=== PATIENT | male | born 1940 | race Caucasian/White ===

== ENCOUNTER → 2016-10-19 | Outpatient (CLI) | payer BC ==
[~2016-10-19] MED LIST: ASPEC81 PO; CHOL100027 PO; LATA0.5S OPB; LECITHIN PO; LISI-792 PO; METH1TAB66 PO; MISCCAP80 PO; MULT-513 PO; OMEG10007 PO; TIMO0.5S2 OPB
--- NOTE | 2016-10-19 11:01 | DIAGNOSTIC IMAGING REPORT ---
MRI OF THE RIGHT SHOULDER CLINICAL HISTORY: Right shoulder pain. COMPARISON STUDY: Radiographs of the right shoulder dated 09/25/2015. TECHNIQUE: MRI of the right shoulder was performed utilizing various T1 and T2 weighted sequences in the axial, sagittal, coronal planes. IV contrast was not administered for this examination. The examination is degraded by susceptibility artifact from metallic structure. FINDINGS: Rotator cuff: There is full-thickness rupture of the supraspinatus and intraspinous tendons with musculotendinous retraction. The tendons are retracted by at least 4 cm. There is associated superior subluxation of the humeral head. There is tendinopathy with high-grade tearing of the subscapularis tendon. A few fibers likely remain intact. The teres minor tendon appears intact. There is subacromial and subdeltoid bursal fluid. Productive degenerative changes seen at the acromioclavicular joint. Biceps tendon: There is tendinopathy with high-grade partial thickness tearing of the long head of the biceps tendon. A few of the fibers remain intact. There is mild medial subluxation of the tendon at the level of the humeral head. The anchor appears intact. Labrum: The labrum is macerated with circumferential tearing. Shoulder joint: There is trace joint effusion. The articular cartilage over the glenoid appears maintained. Arthritic change and bony irregularity is identified in the greater tuberosity of the humeral head. There is no MRI evidence of fracture. Musculature and soft tissues: The supraspinatus and infraspinatus muscles are markedly atrophic. No intramuscular edema is identified. IMPRESSION: 1. There is full-thickness rupture with musculotendinous retraction involving the supraspinatus and infraspinatus tendons with associated superior subluxation of the humeral head. 2. There is marked muscular atrophy of supraspinatus and interspinous. 3. There is maceration with circumferential tearing of the labrum. 4. There is high-grade partial thickness tearing of the subscapularis tendon. A few fibers likely remain intact. 5. There is tendinopathy with high-grade partial-thickness tearing of the long head of the biceps tendon. There is mild medial subluxation of the tendon at the level of the humeral head. 6. Additional findings as above. Electronically signed by: Ryder Shaw M.D. 10/19/2016 11:00 AM Dictated Date/Time: 10/19/2016 10:54 AM
== END | disposition home or self-care (01) ==
LOC: C.MRI 09:39
PROVIDERS: ATTEND Physician Assistant
DX: S46.091D Other injury of muscle(s) and tendon(s) of the rotator cuff of right shoulder, subsequent encounter (principal); X58.XXXD Exposure to other specified factors, subsequent encounter; M62.511 Muscle wasting and atrophy, not elsewhere classified, right shoulder; S46.811A Strain of other muscles, fascia and tendons at shoulder and upper arm level, right arm, initial encounter; M75.91 Shoulder lesion, unspecified, right shoulder

== ENCOUNTER → 2016-11-29 | Outpatient (CLI) | payer BC | END | disposition home or self-care (01) | LOC: C.RDSM 09:30 | PROVIDERS: ATTEND Orthopaedic Surgery Sports Medicine | DX: M25.552 Pain in left hip (principal) ==

== ENCOUNTER → 2016-12-05 | Outpatient (CLI) | payer BC ==
[2016-12-05 09:35] LABS: BASO % 0.7 %; BASO ABS # 0.04 K/uL (0-0.2); COMPLETE YES; EOS % 2.8 %; HEMATOCRIT 42.4 % (42-52); IG% 0.2 %; LYMPH ABS # 1.66 K/uL (1.2-3.4); MEAN CELL VOLUME 94.9 fL (80-100); MEAN CORPUSCULAR HEMOGLOBIN 32.2 pg (25-34); MONO % 13.4 %; NEUT % 51.9 %; PLATELET COUNT 296 K/uL (130-400); RED BLOOD COUNT 4.47 M/uL (4.7-6.1); WHITE BLOOD COUNT 5.36 K/uL (4.8-10.8)
[2016-12-05 09:44] LABS: BLOOD UREA NITROGEN 19 mg/dl (7-18); BUN/CREATININE RATIO 19.5 (10-20); CALCIUM 8.7 mg/dl (8.5-10.1); CARBON DIOXIDE 31 mmol/L (21-32); CHLORIDE 106 mmol/L (98-107); CREATININE 0.96 mg/dl (0.60-1.40); GLUCOSE 98 mg/dl (70-99); SODIUM 140 mmol/L (136-145)
[2016-12-05 09:49] LABS: CHOLESTEROL 177 mg/dl (0-200); CHOLESTEROL/HDL RATIO 3.2; HDL CHOLESTEROL 56 mg/dl; LDL CHOLESTEROL CALCULATED 93 mg/dl; TRIGLYCERIDES 139 mg/dl (0-150); VERY LOW DENSITY LIPOPROT CALC 28 mg/dl
[2016-12-05 09:54] LABS: ESTIMATED AVERAGE GLUCOSE 120 mg/dl; HA1C FLAG Normal (Normal)
== END | disposition home or self-care (01) ==
LOC: C.LAB1850 07:46
PROVIDERS: ATTEND Internal Medicine
DX: I10 Essential (primary) hypertension (principal); R73.03 Prediabetes; E78.5 Hyperlipidemia, unspecified; R31.9 Hematuria, unspecified; D09.0 Carcinoma in situ of bladder; Z12.5 Encounter for screening for malignant neoplasm of prostate

== ENCOUNTER → 2016-12-14 | Outpatient (CLI) | payer BC ==
[~2016-12-14] MED LIST changes: +OPTIRAY 300 IV PRN
--- NOTE | 2016-12-14 14:21 | DIAGNOSTIC IMAGING REPORT ---
IVP W/OR W/O TOMOGRAMS CLINICAL HISTORY: BLADDER CANCER bladder carcinoma COMPARISON STUDY: None FINDINGS: Studies performed following the intravenous injection of 1 cc nonionic contrast. Tomographic sections demonstrate no evidence for differences. There is left renal sinus lipomatosis.. Ureters normal in course and caliber. Bladder fills appropriately with no significant filling defect. Post void shows no significant residual. IMPRESSION: Negative study. The above report was generated using voice recognition software. It may contain grammatical, syntax or spelling errors. Electronically signed by: Urbano Harmon M.D. 12/14/2016 2:20 PM Dictated Date/Time: 12/14/2016 2:18 PM
== END | disposition home or self-care (01) ==
LOC: C.RAD 12:45
PROVIDERS: ATTEND Urology
DX: D09.0 Carcinoma in situ of bladder (principal)

== ENCOUNTER 2019-02-18 07:54 | Inpatient (IN) ==
--- NOTE | 2019-01-21 19:57 | PAT Medication Instructions ---
Medication Instructions Date of Service January 21, 2019 Home Medications Medication Instructions Recorded pantoprazole [Protonix] 40 mg PO DAILY #30 tab 05/14/18 ipratropium bromide 42 mcg (0.06 2 sprays INTNAS BID #15 ml 12/24/18 %) nasal spray olopatadine 0.6 % nasal spray 2 sprays INTRANASAL DAILY #30.5 gm 12/24/18 Probiotic 1 cap PO QAM aspirin [Aspir-81] 81 mg PO QAM cholecalciferol (vitamin D3) [Vitamin D3] 2,000 unit PO QAM latanoprost 1 drp OPB HS lisinopril 2 tab PO QAM multivitamin 1 tab PO QAM omega 3-mtb-kui-fish oil [Fish Oil] 1 cap PO QAM psyllium husk [Fiber-Caps (psyllium husk)] 0.52 g PO QAM timolol 1 drp OPHTHALMIC (EYE) QAM pantoprazole [Protonix] 40 mg PO DAILY ipratropium bromide 42 mcg (0.06 %) nasal spray 2 sprays INTNAS BID olopatadine 0.6 % nasal spray 2 sprays INTRANASAL DAILY docusate sodium [Stool Softener] 100 mg PO QAM ASK your prescriber and surgeon aspirin [Aspir-81] 81 mg PO QAM STOP taking 2 weeks before surgery (or as soon as possible if surgery is within 2 weeks) omega 9-lzq-acs-fish oil [Fish Oil] 1 cap PO QAM DO NOT take the morning of surgery Probiotic 1 cap PO QAM cholecalciferol (vitamin D3) [Vitamin D3] 2,000 unit PO QAM lisinopril 2 tab PO QAM multivitamin 1 tab PO QAM psyllium husk [Fiber-Caps (psyllium husk)] 0.52 g PO QAM docusate sodium [Stool Softener] 100 mg PO QAM Take morning of surgery With a small sip of water, OTHERWISE NOTHING TO EAT OR DRINK AFTER MIDNIGHT: timolol 1 drp OPHTHALMIC (EYE) QAM pantoprazole [Protonix] 40 mg PO DAILY ipratropium bromide 42 mcg (0.06 %) nasal spray 2 sprays INTNAS BID olopatadine 0.6 % nasal spray 2 sprays INTRANASAL DAILY Take evening before surgery latanoprost 1 drp OPB HS ipratropium bromide 42 mcg (0.06 %) nasal spray 2 sprays INTNAS BID Other Notes If you have any questions please call us at [phone] or [phone] or [phone] or [phone]
--- NOTE | 2019-01-22 10:33 | Anesthesiology Consultation ---
Date of Service January 22, 2019 Assessment & Plan (1) Encounter for pre-operative examination: - Possible difficult intubation: due to decreased cervical extension (per patient, hx "pinched nerve" in cervical region) Chart Review Chart Review: Pending: Refer to Additional Notes / Consult section (pending preop testing (labs, EKG, CXR)) and Patient seen in Pre Admission Testing Teaching & Discussion Pre-Anesthesia Teaching/Discussion Notes: Instructed NPO after midnight before surgery,except medications with 15 cc of water. Medication instructions provided according to the PAT guidelines. History Surgery Operation Date: 02/18/19 07:00 Proposed Procedures p Right Reversed Total Shoulder Arthroplasty - Miguel Angel Lubin MD Height/Weight Height: 5 ft 6 in Weight: 74.9 kg Allergies Allergy/AdvReac Type Severity Reaction Status Date / Time No Known Drug Allergies Allergy Unknown . Verified 01/10/19 08:01 Medications Home Medications Medication Instructions Recorded Confirmed Last Taken Probiotic 1 cap PO QAM 03/12/18 01/10/19 05/13/18 aspirin [Aspir-81] 81 mg PO QAM 03/12/18 01/10/19 05/13/18 cholecalciferol (vitamin D3) 2,000 unit PO QAM 03/12/18 01/10/19 05/13/18 [Vitamin D3] latanoprost 1 drp OPB HS 03/12/18 01/10/19 05/14/18 lisinopril 2 tab PO QAM 03/12/18 01/10/19 05/14/18 06:00 multivitamin 1 tab PO QAM 03/12/18 01/10/19 05/13/18 omega 5-skq-gde-fish oil [Fish Oil] 1 cap PO QAM 03/12/18 01/10/19 05/13/18 psyllium husk [Fiber-Caps 0.52 g PO QAM 03/12/18 01/10/19 05/13/18 (psyllium husk)] timolol 1 drp OPHTHALMIC (EYE) QAM 03/12/18 01/10/19 05/07/18 05:30 pantoprazole [Protonix] 40 mg PO DAILY #30 tab 05/14/18 01/10/19 Unknown ipratropium bromide 42 mcg (0.06 2 sprays INTNAS BID #15 ml 12/24/18 01/10/19 Unknown %) nasal spray olopatadine 0.6 % nasal spray 2 sprays INTRANASAL DAILY #30.5 gm 12/24/18 01/10/19 Unknown docusate sodium [Stool Softener] 100 mg PO QAM 01/10/19 01/10/19 Unknown Past Medical History Medical History Pre-diabetes GERD (gastroesophageal reflux disease) occasional Glaucoma Hearing deficit History of bladder cancer Hypertension Osteoarthritis Sleep apnea CPAP Exercise / Class Metabolic Activity II 4-5 Yardwork/Stairs/Walk up hill Past Family History Family History Grandmother Dementia Osteoarthritis Rheumatoid arthritis Father Heart disease Grandfather (Maternal) Lung disease Mother Osteoporosis Past Surgical History Surgical History History of colonoscopy History of hemorrhoidectomy History of tonsillectomy History of tooth extraction Hx of cataract surgery LEFT/RT Hx of vasectomy Past Anesthesia History No Hx of Anesthesia Complications and No Family Hx of Anesthesia Complications History of PONV No Hx of PONV and No Hx of Motion Sickness Social History Smoking Status: Never smoker Do You Dip or Chew Tobacco: No Hx Alcohol Use: Yes Alcohol type: wine alcohol intake frequency: other Alcohol Intake Frequency Comment: 3 DRINKS A WEEK Hx Substance Use: No substance use type: does not use Review of Systems Occasional reflux. Patient denies chest pain, shortness of breath, dyspnea on exertion, cough, wheezing, palpitations. Physical Exam Vital Signs VITALS BP 109/63 P 93 TEMP 97.4 SP02 94%RA RESP 16 PHYSICAL Decreased cervical extension 2/2 "pitched vertebra" Full TMJ range of motion. TMD 2.5 finger breaths Mallampati Score 3 Dentition: several missing sides/molars Lungs: clear throughout to auscultation Cardiac: regular rate and rhythm, no murmurs noted Spine: normal Carotid arteries: negative bruit Extremities: no edema
--- NOTE | 2019-01-22 11:26 | XRay Report ---
XR chest Pre-admission PA/Lat CLINICAL HISTORY: 79 years-old Male presenting with preoperative assessment. TECHNIQUE: 05/12/2010 and 12/19/2014. COMPARISON: None. FINDINGS: Elevation of the bilateral hemidiaphragms as on prior exam. Cardiac silhouette borderline enlarged. M inimal linear opacity at the left lung base unchanged. No new focal opacity. No pleural effusion or p neumothorax. Degenerative changes of the thoracic spine. Upper abdomen normal. IMPRESSION: 1. No acute cardiopulmonary disease. Electronically signed by: Omero Gallegos M.D. 01/22/2019 11:25 AM
[2019-01-22 12:00] LABS: Basophils # (auto) 0.04 K/uL (0-0.2); Basophils % (auto) 0.9 %; Eosinophils # (auto) 0.07 K/uL (0-0.5); Eosinophils % (auto) 1.6 %; Hematocrit (blood only) 40.7 % (42-52); Hemoglobin 14.1 g/dL (14.0-18.0); Lymphocytes # (auto) 1.73 K/uL (1.2-3.4); Lymphocytes % (auto) 39.7 %; Mean Corpuscular Hemoglobin 33.1 pg (25-34); Mean Corpuscular Hgb Conc 34.6 g/dL (32-36); Mean Corpuscular Volume 95.5 fL (80-100); Mean Platelet Volume 8.9 fL (7.4-10.4); Monocytes # (auto) 0.57 K/uL (0.11-0.59); Monocytes % (auto) 13.1 %; Neutrophils # (auto) 1.95 K/uL (1.4-6.5); Neutrophils % (auto) 44.7 %; Platelet Count 256 K/uL (130-400); RDW Coefficient of Variation 12.9 % (11.5-14.5); RDW Standard Deviation 44.6 fL (36.4-46.3); Red Blood Count 4.26 M/uL (4.7-6.1); White Blood Count 4.36 K/uL (4.8-10.8)
[2019-01-22 12:04] LABS: Appearance Urine Clear (Clear); Bilirubin Urine Negative (Negative); Blood Urine Negative (Negative); Color Urine Yellow; Glucose Urine UA Negative (Negative); Ketones Urine Negative (Negative); Leukocyte Esterase Urine Negative (Negative); Nitrite Urine Negative (Negative); Protein Urine Negative (Negative); Specific Gravity Urine 1.018 (1.000-1.030); Urobilinogen Urine Negative (Negative); pH Urine 5.5 (4.5-7.5)
[2019-01-22 12:06] LABS: Estimated Average Glucose 117 mg/dl; Hemoglobin A1C 5.7 % (4.5-5.6)
[2019-01-22 12:09] LABS: Albumin Level 3.7 gm/dl (3.4-5.0); BUN Creatinine Ratio 20.4 (10-20); Calcium 8.9 mg/dl (8.5-10.1); Creatinine Clr Calc Pharmacy 47.4 ml/min; Est GFR (African American) 70.5; Est GFR (Non-African American) 60.8; Potassium 4.2 mmol/L (3.5-5.1)
[2019-01-22 12:15] LABS: Partial Thromboplastin Time 26.5 Seconds (21.0-31.0)
--- NOTE | 2019-02-17 18:04 | History and Physical Report ---
DATE OF ADMISSION: 02/18/2019 CHIEF COMPLAINT: Chronic right shoulder pain and weakness. HISTORY OF PRESENT ILLNESS: This is a 79-year-old male patient of Dr. Lubin'dimitri complaining of chronic right shoulder pain and weakness, longstanding, now progressively getting worse. The patient has failed conservative treatment. He has been diagnosed with rotator cuff arthropathy and wishes to proceed with a right reversed total shoulder arthroplasty. PAST MEDICAL HISTORY: Hypertension, sleep apnea with the use of CPAP, neck problems, history of bladder cancer. SOCIAL HISTORY: Nonsmoker, occasional drinker. PAST SURGICAL HISTORY: Negative. FAMILY HISTORY: Noncontributory. REVIEW OF SYSTEMS: Chronic right shoulder pain and weakness. Otherwise, denies any shortness of breath, chest pain, nausea, vomiting or any other joint complaints. MEDICATIONS: 1. Betimol 0.5% eyedrops twice daily to affected eye. 2. Xalatan 0.005% eyedrops 1 drop to affected eye daily. 3. Lisinopril 40 mg daily. 4. Aspirin 81 mg daily. 5. Vitamin D3 2000 units daily. 6. Fish oil daily. 7. Probiotic 20 billion cell capsule daily. 8. Fiber 625 mg tablet daily. 9. Calcium daily. 10. Ipratropium bromide 42 mcg 2 sprays in each nostril 3 times daily. ALLERGIES: No known drug allergies. PHYSICAL EXAMINATION: GENERAL: Well-developed, well-nourished 79-year-old male, in no acute distress. He is alert and oriented x3 and pleasant. HEENT: Normocephalic, atraumatic. Extraocular motions are intact. Pupils are equal and reactive to light. HEART: Regular rate and rhythm. No murmurs. LUNGS: Clear. ABDOMEN: Soft, nontender, bowel sounds present. EXTREMITIES: Right shoulder, active range of motion of 0-30 degrees, passively full with pain and crepitation. He has 3+ to 4/5 strength globally. NEUROLOGIC: Neurovascularly, he is intact in his right upper extremity. DIAGNOSES: Right shoulder rotator cuff arthropathy, hypertension, sleep apnea with use of CPAP, neck problems and a history of bladder cancer. PLAN: The patient was advised of his diagnosis. Indications, risks, benefits, postop course have all been reviewed. The patient wished to proceed with a right reversed total shoulder arthroplasty. Necessary consent forms, preoperative testing and clearances will be obtained.
[~2019-02-18 07:54] MED LIST changes: +ACETAMINOPHEN 500 MG TAB PO SCH; -ASPEC81 PO; +CEFAZOLIN 1000MG 1,000 MG/7.5 ML SYR IV SCH; -CHOL100027 PO; +CeleBREX 200 MG CAP PO SCH; +FAMOTIDINE 20 MG TAB PO SCH; +GABAPENTIN 300 MG CAP PO SCH; -LATA0.5S OPB; -LECITHIN PO; -LISI-792 PO; +LR 15ML/HR IV SCH; -METH1TAB66 PO; +METOCLOPRAMIDE HCL 10 MG TABLET PO SCH; -MISCCAP80 PO; -MULT-513 PO; -OMEG10007 PO; -OPTIRAY 300 IV PRN; +ROPIVACAINE 0.5% 5 MG/ML 30 ML VIAL ONE; -TIMO0.5S2 OPB; +TRANEXAMIC ACID 1,000 MG **IV Intra-op IV SCH; +TRANEXAMIC ACID 1,000 MG **IV Pre-op IV SCH; +dexAMETHasone 4 MG TAB PO SCH
--- NOTE | 2019-02-18 08:28 | History & Physical Bridge Note ---
Date of Service February 18, 2019 History & Physical Bridge Note I have examined the patient, reviewed the History & Physical and in the interval since the performance of the History & Physical I have noted the following changes of clinical significance: no changes noted
[2019-02-18] MEDS ORDERED: ONDANSETRON INJ 2 MG/ML 2 ML VIAL IV PRN ×2 (08:58→15:24)
[2019-02-18] MEDS ORDERED: fentaNYL citrate 100 MCG/2 ML VIAL IV PRN (08:58)
[2019-02-18] MEDS ORDERED: ATROPINE SULFATE 0.1 MG/ML 10ML SYR IV PRN (08:58)
[2019-02-18] MEDS ORDERED: ePHEDrine sulfate 50 MG/ML AMP IV PRN (08:58)
[2019-02-18] MEDS ORDERED: HYDROmorphone INJ 1 MG/ML SYRINGE IV PRN (08:58)
[2019-02-18] MEDS ORDERED: ONDANSETRON INJ 2 MG/ML 2 ML VIAL ONE (09:03)
[2019-02-18] MEDS ORDERED: DEXAMETHASONE SOD INJ 4 MG/ML VIAL ONE (09:03)
[2019-02-18] MEDS ORDERED: PROPOFOL IV EMULSION 10 MG/ML 20 ML VIAL IV ONE (09:03)
[2019-02-18] MEDS ORDERED: fentaNYL citrate 100 MCG/2 ML VIAL ONE (09:03)
[2019-02-18] MEDS ORDERED: GLYCOPYRROLATE 0.2 MG/ML VIAL ONE (09:03)
[2019-02-18] MEDS ORDERED: LIDOCAINE HCL 2% 2 ML VIAL/AMP(20MG/ML) INFIL ONE (09:03)
[2019-02-18] MEDS ORDERED: ePHEDrine sulfate 50 MG/ML AMP ONE (09:03)
[2019-02-18] MEDS ORDERED: PHENYLEPHRINE HCL 10 MG/ML VIAL ONE (09:03)
[2019-02-18] MEDS ORDERED: SUCCINYLCHOLINE CHLORIDE 20 MG/ML 10 ML VIAL ONE (09:03)
[2019-02-18] MEDS ORDERED: MIDAZOLAM HCL 1 MG/ML 2ML VIAL ONE (09:03)
[2019-02-18] MEDS ORDERED: NEOSTIGMINE METHYLSULFATE 5 MG/5 ML SYR ONE (09:03)
[2019-02-18] MEDS ORDERED: BACITRACIN INJ 50,000 UNIT VIAL ONE (09:25)
[2019-02-18] MEDS ORDERED: ACETAMINOPHEN 1000 MG/100 ML IV IV ONE (09:50)
[2019-02-18] MEDS ORDERED: ROPIVACAINE 0.5% HCL/PF 150 MG, BUPIVACAINE 0.5% MPF 30 ML, EPINEPHrine 30MG/30ML (OR U... INSTIL SCH (10:00)
[2019-02-18] MEDS ORDERED: HYDROmorphone INJ 2 MG/ML SYR/VIAL ONE (11:05)
--- NOTE | 2019-02-18 12:17 | Post Operative Brief Note ---
Immediate Post Op Note v1 Date of Surgery February 18, 2019 Pre & Post Diagnosis Operation Date: 02/18/19 10:20 Pre-Op Diagnosis: Rotator Cuff tear arthropathy of Right Shoulder Post-Op Diagnosis: Rotator Cuff tear arthropathy of Right Shoulder, Biceps Tendinopathy with subluxation I identified the patient and participated in the time-out.: Yes Procedure Operation Date: 02/18/19 10:20 Actual Procedures p Right Reversed Total Shoulder Arthroplasty, Biceps Tenodesis(Right) - Miguel Angel Lubin MD Surgeon Miguel Angel Lubin MD Hunting [employer] Urbano ROMO Estimated Blood Loss 75 Findings Consistent with Post-Op Diagnosis Specimens Humeral head Drains Hemovac Drain Anesthesia Type General Complications none Disposition Accompanied Patient To Recovery: No Disposition: Recovery Room Overlapping Procedure I was present for: the critical portions of procedure.
--- NOTE | 2019-02-18 13:08 | XRay Report ---
XR shoulder RT min 2V routine CLINICAL HISTORY: Post shoulder surgery COMPARISON: None. DISCUSSION: Anatomic alignment posttotal right shoulder arthroplasty. Could contact between prostheti c and underlying bone. Expected postoperative soft tissue change. IMPRESSION: Anatomic alignment posttotal right shoulder arthroplasty. The above report was generated using voice recognition software. It may contain grammatical, syntax or spelling errors. Electronically signed by: Urbano Harmon M.D. 02/18/2019 1:06 PM
[2019-02-18] MEDS ORDERED: bisacodyL 10 MG SUPP PR PRN (15:24)
[2019-02-18] MEDS ORDERED: HYDROmorphone INJ 0.5 MG/0.5 ML SYR IV PRN (15:24)
[2019-02-18] MEDS ORDERED: MAGNESIUM HYDROXIDE SUSP 30 ML UDC PO PRN (15:24)
[2019-02-18] MEDS ORDERED: NALOXONE HCL 0.4 MG/1 ML VIAL/CARP IV PRN (15:24)
[2019-02-18] MEDS ORDERED: OXYCODONE HCL IR 5 MG TAB (IMMEDIATE RELEASE) PO PRN (15:24)
--- NOTE | 2019-02-18 15:41 | Anesthesiology Progress Note ---
Date of Service February 18, 2019 Anesthesia Post Procedure Vital Signs Vital Signs: Temp Pulse Pulse Resp BP Pulse Ox 02/18/19 15:00 36.9 C 65 16 107/61 98 02/18/19 14:55 68 16 103/57 L 99 02/18/19 14:40 71 17 107/56 L 100 02/18/19 14:25 66 15 104/60 98 02/18/19 14:10 62 16 103/62 98 02/18/19 14:00 61 14 104/62 97 02/18/19 13:50 36.4 C L 61 12 102/57 L 100 02/18/19 13:40 62 13 113/64 98 02/18/19 13:30 79 20 98/59 L 97 02/18/19 13:20 65 13 104/62 97 02/18/19 13:10 52 L 16 101/63 99 02/18/19 13:00 63 14 99/63 L 99 02/18/19 12:50 58 L 16 90/61 L 99 02/18/19 12:40 58 L 16 83/56 L 99 02/18/19 12:30 57 L 14 93/51 L 97 02/18/19 12:24 36.1 C L 60 18 92/57 L 97 02/18/19 08:44 36.9 C 87 20 136/78 96 Pain Intensity Right Shoulder: Pain Intensity: 2 Transfer of Care Handoff Completed per policy Notes Mental Status: alert / awake / arousable and participated in evaluation Patient Amnestic to Procedure: Yes Nausea / Vomiting: adequately controlled Pain: adequately controlled Airway Patency, RR, SpO2: stable & adequate BP & HR: stable & adequate Hydration State: stable & adequate Anesthetic Complications: no major complications apparent and Pt Satisfied with anesthetic care
[2019-02-18] MEDS ORDERED: PHARMACY GLYCEMIC MGMT CONSULT PRN (16:08)
[2019-02-18] MEDS: SODIUM CHLORIDE 0.9% 1000ML 1,000 ML IV SCH (16:15)
--- NOTE | 2019-02-18 16:49 | Operative Report ---
Post Operative Report Pre & Post Diagnosis Operation Date: 02/18/19 10:20 Pre-Op Diagnosis: Rotator Cuff tear arthropathy of Right Shoulder Post-Op Diagnosis: Rotator Cuff tear arthropathy of Right Shoulder, Biceps Tendinopathy I identified the patient and participated in the time-out.: Yes Procedure Operation Date: 02/18/19 10:20 Actual Procedures p Right Reversed Total Shoulder Arthroplasty, Biceps Tenodesis(Right) - Miguel Angel Lubin MD Surgeon Miguel Angel Lubin MD Manager [employer] Urbano ROMO Estimated Blood Loss 75 Findings Consistent with Post-Op Diagnosis Specimens Humeral head cut Drains 2 Hemovac Anesthesia Type General Complications none Disposition Accompanied Patient To Recovery: No Disposition: Recovery Room Indications 79-year-old male with chronic dysfunction and pain right shoulder. Radiographs demonstrate proximal migration humerus and rotator cuff arthropathy consistent with chronic rotator cuff tear. Patient has a pseudo-paralytic shoulder with limited elevation actively to 40 degrees forward elevation by 30 degrees with reasonable good passive range of motion. Patient has significant decreased s trength consistent with complete tear rotator cuff. Description of Procedure The patient was taken to the operating room and anesthetized under regional block and general anesthetic. The patient was positioned on the operating table in a 30 beachchair position with a towel roll under the medial border of the right scapula. The arm was draped free to be able to manipulate the shoulder as needed. The right upper extremity was prepped and draped in usual sterile fashion. Exam demonstrated chronic atrophy of the shoulder. Good passive range of motion to 160 degrees forward elevation. An anterior deltopectoral approach was performed. A longitudinal incision was made in the deltopectoral interval. The skin was incised sharply. Subcutaneous flaps were elevated off the fascia. The cephalic vein was dissected out and retracted lateral with the deltoid. The clavipectoral fascia was divided at the lateral margin of the conjoined tendon and extended up to the CA ligament. The following findings were noted ;the subscapularis tendon was intact, small section of supraspinatus tendon was still intact adjacent to the biceps tendon. 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 There is moderate osteoarthritis glenohumeral joint not [id number] the posterior supraspinatus and two thirds of the infraspinatus tendon were torn with intact teres minor. The upper centimeter of the pectoralis was released for inferior exposure. the biceps tendon was tenodesed to the pectoralis tendon with #2 FiberWire. The proximal biceps was resected. The small strand of intact supraspinatus was released. The subscapularis tendon was taken down off the lesser tuberosity usi ng a subperiosteal dissection. A #1 Vicryl traction suture was placed into the free end of the subscapularis tendon and capsule. The subscapular muscle fibers were split longitudinally at the level of the circumflex vessels. The circumflex vessels were identified and tied off with silk ties and divided laterally. A Kitner elevator was used to free up the inferior fibers of the subscapularis off of the capsule. The axillary nerve was identified with a tug test and protected with a blunt Kenji retractor between the nerve and the capsule. The subscapularis tendon was then taken down off of the lesser tuberosity subperiosteally and subperiosteal dissection was performed along the neck of the humerus as the arm is gradually actually rotated exposing the humeral head. Retractors were readjusted and the inferior osteophytes were all resected using an artist chisel. A Anderson elevator was used to assist in releasing the capsule of the neck of the humerus. The capsule was divided with Fall scissors down to the glenoid released off the anterior glenoid and the rotator interval was released to meet the capsular release and a 360 release of the subscapularis was accomplished. A Fukuda retractor was placed into the joint retracting the humeral head posterior. Glenoid findings demonstrated mild to moderate DJD still intact labrum. The labrum and biceps tendon was resected. an anterior-inferior and posterior inferior capsular release were performed with electrocautery and a Anderson elevator on bone with the axillary nerve protected inferiorly by the retractor. Attention was then taken to the humeral preparation. The cutting guide was placed into the humeral head. It was positioned at 20 of retroversion. Oscillating saw was used to resect the humeral head giving the cut above the level of the posterior rotator cuff insertion site. The humerus was then prepared for the stem. I used the ascend flex stem from [employer]. The sizing broaches were used followed by trial bro aches up to a size 6B long which had the appropriate fit and fill. The appropriate sized cut protector was placed. The humerus was then retracted posterior to the glenoid. The glenoid was sized for a 25 baseplate. The guide for the baseplate was positioned in a 10 inferior tilt and the central drill hole was made. The reamer for the 25 baseplate was used. The central drill was widened for the peg. The 25 hydroxyapatite-coated Tornier aequalis baseplate was impacted into position. The base plate was transfixed with superior and inferior locking screws and anterior and posterior compression screws with stable fixation. The fan reamer was used for the 36 millimeter glenoid sphere. After irrigation the 36+2 eccentric glenoid sphere was impacted onto the baseplate with eccentric offset inferior and the screw was tightened. Attention was taken back to the humerus. The cut protector was removed and the +0 high offset humeral tray trial was assembled to the trial stem rotated appropriately to get bony coverage and then screwed in position. A trial reduction was performed. A +6 trial insert demonstrated good stability and no shuck. The trials were removed. 3 drill holes are made into the harder bone in the bicipital groove area and 3 #5 FiberWire sutures were placed transosseously. The canal was irrigated with antibiotic solution with bacitracin. The final component was assembled. The final component was 6B long stem assembled to +0 high offset tray assembled to 6 mm polyethylene. This was then impacted into the humerus with a tight press-fit. It was reduced to the glenoid sphere. Stability was verified. Subscapularis was repaired with the #5 FiberWire sutures using Den-Mukesh suture technique. Lateral row soft tissue repair was performed with #2 FiberWire [id number] sutures. The pectoralis was repaired with #2 FiberWire [id number] sutures reinforcing the biceps tendon tenodesis. The arm was taken through a range of motion which demonstrated 150 degrees forward elevation 90 degrees abduction external rotation to 60 degrees. The implant was stable through the range of motion tested. The wound was copiously irrigated. 2 Hemovac drains were placed. The deltopectoral interval was closed with [id number] #1 Vicryl sutures. The subcutaneous tissues were closed with 2-0 Vicryl sutures. The skin was closed with freddy. Sterile dressings were applied and a shoulder immobilizer. Urbano Barakat my physician fleet assistant assisted in the procedure to the entire procedure including patient positioning arm positioning prepping and draping soft tissue retraction instrument management suture management and performed the subcutaneous and skin closure and will participate in the postoperative care of the patient. I attest to the content of the Intraoperative Record and any orders documented therein. Any exceptions are noted below.
[2019-02-18] MEDS: ACETAMINOPHEN 500 MG TAB PO SCH ×2 (17:01→21:49)
[2019-02-18] MEDS: CEFAZOLIN 1000MG 1,000 MG/7.5 ML SYR IV SCH (17:01)
[2019-02-18] MEDS ORDERED: GLUCAGON FOR INJ 1 MG VIAL IM PRN (17:15)
[2019-02-18] MEDS ORDERED: GLUCOSE 10 TABS/TUBE PO PRN (17:15)
[2019-02-18] MEDS ORDERED: CARBOHYDRATES FOR HYPOGLYCEMIA PO PRN (17:15)
[2019-02-18] MEDS ORDERED: DEXTROSE 50% 50 ML SYRINGE IV PRN (17:15)
[2019-02-18] MEDS ORDERED: GLUCOSE 40% GEL 15 GM TUBE PO PRN (17:15)
[2019-02-18] MEDS ORDERED: SYSTANE ULTRA OP PRN (17:21)
[2019-02-18] MEDS ORDERED: LANTUS PER UNIT CHARGE SQ ONE (17:30)
[2019-02-18] MEDS: INSULIN ASPART 100 UNITS/ML 3 ML PEN SC SCH ×2 (18:30→20:39)
--- NOTE | 2019-02-18 19:24 | Hospitalist Consultation ---
Date of Consultation February 18, 2019 Assessment & Plan (1) Right shoulder pain: Post op on 02/[address] Lubin As per ortho (2) Sleep apnea: Has home CPAP to use (3) Pre-diabetes: No current medications SSI PRN (4) Essential hypertension: continue home meds (5) Cancer: Hx of bladder cancer in 2012, no current tx (6) GERD without esophagitis: Hx of dx but asx and does not take medication for this (7) DVT prophylaxis: As per ortho History of Present Illness Attending Physician: Miguel Angel Lubin MD History of Present Illness 79 y/o M who was admitted on 02/18 s/p R shoulder with Dr. Lubin. Pt is doing well post-op. Minimal pain that is about what he expected. Having some swallowing difficulties s/p intubation for the surgery, but did fine with broth. Pt denies fever, SOB, chest pain, abd pain, n/v/c/d, LE swelling or pain. Allergies Allergy/AdvReac Type Severity Reaction Status Date / Time No Known Drug Allergies Allergy Unknown . Verified 02/18/19 08:24 Home Medications Home Medications Medication Instructions Recorded Confirmed Type Probiotic 1 cap PO QAM 03/12/18 02/18/19 History aspirin [Aspir-81] 81 mg PO QAM 03/12/18 02/18/19 History cholecalciferol (vitamin D3) 2,000 unit PO QAM 03/12/18 02/18/19 History [Vitamin D3] latanoprost 1 drp OPB HS 03/12/18 02/18/19 History multivitamin 1 tab PO QAM 03/12/18 02/18/19 History omega 1-aaj-mdb-fish oil [Fish Oil] 1 cap PO QAM 03/12/18 02/18/19 History psyllium husk [Fiber-Caps 0.52 g PO QAM 03/12/18 02/18/19 History (psyllium husk)] ipratropium bromide 42 mcg (0.06 2 sprays INTNAS BID #15 ml 12/24/18 02/18/19 Rx %) nasal spray olopatadine 0.6 % nasal spray 2 sprays INTRANASAL DAILY #30.5 gm 12/24/18 02/18/19 Rx docusate sodium [Stool Softener] 100 mg PO QAM 01/10/19 02/18/19 History timolol 0.25 % eye drops 1 drp OPHTHALMIC (EYE) Q12H ml 01/22/19 02/18/19 History lisinopril 60 mg PO QAM 02/18/19 02/18/19 History Patient History Medical History Pre-diabetes History of bladder cancer GERD (gastroesophageal reflux disease) occasional Glaucoma Hearing deficit Hypertension Osteoarthritis Sleep apnea CPAP Surgical History History of colonoscopy History of hemorrhoidectomy History of tonsillectomy History of tooth extraction Hx of cataract surgery LEFT/RT Hx of vasectomy Family History Grandmother Dementia Osteoarthritis Rheumatoid arthritis Father Heart disease Grandfather (Maternal) Lung disease Mother Osteoporosis Social History Preferred Language: [place]ib[place]ian Communication Ability: Effective Communication Ability Comment: HARD OF HEARING / AID[employer] Level Five Required: No Beliefs That Will Affect Care: None Current Living Situation: Spouse Other Information That Helps Us Care for You: No Feels Safe at Home: Yes Smoking Status: Never smoker Do You Dip or Chew Tobacco: No ; Second Hand Exposure: No ; Hx Alcohol Use: Yes Alcohol type: beer, wine and hard liquor Alcohol Intake Frequency Comment: 2x a week after golf Hx Substance Use: No Review of Systems Review of Systems: Pertinent positives and negatives reviewed in HPI--all others negative Physical Exam Constitutional: WD/WN, vitals as above Eyes: normal visual barney by confrontation and + anicteric sclerae Neck: normal visual inspection and trachea midline Respiratory: normal respiratory effort, lungs clear to auscultation Cardiovascular: Rate/Rhythm: regular rate and regular rhythm Gastrointestinal (Abdomen): Inspection/Auscultation: abdomen not distended Percussion/Palpation: abdomen soft; abdomen nontender Musculoskeletal: Head/Neck/Chest: normocephalic and head atraumatic negative for edema, peripheral pulses intact Skin: no rashes, warm and dry Neurologic: awake; not confused Speech / Cognition: normal speech Psychiatric: A+Ox3, euthymic affect Results & Data Vital Signs (Past 12 Hours) Vital Signs Temp Pulse Pulse Pulse Resp BP Pulse Ox 02/18/19 18:25 76 02/18/19 17:54 36.6 C 98 H 16 122/68 97 02/18/19 16:54 36.3 C L 75 16 99/68 L 97 02/18/19 15:54 36.2 C L 86 16 120/74 96 02/18/19 15:24 36.5 C 71 16 113/61 97 02/18/19 15:00 36.9 C 65 16 107/61 98 02/18/19 14:55 68 16 103/57 L 99 02/18/19 14:40 71 17 107/56 L 100 02/18/19 14:25 66 15 104/60 98 02/18/19 14:10 62 16 103/62 98 02/18/19 14:00 61 14 104/62 97 02/18/19 13:50 36.4 C L 61 12 102/57 L 100 02/18/19 13:40 62 13 113/64 98 02/18/19 13:30 79 20 98/59 L 97 02/18/19 13:20 65 13 104/62 97 02/18/19 13:10 52 L 16 101/63 99 02/18/19 13:00 63 14 99/63 L 99 02/18/19 12:50 58 L 16 90/61 L 99 02/18/19 12:40 58 L 16 83/56 L 99 02/18/19 12:30 57 L 14 93/51 L 97 02/18/19 12:24 36.1 C L 60 18 92/57 L 97 02/18/19 08:44 36.9 C 87 20 136/78 96 Diagnostic Findings CXR: neg for acute ECG Findings: + LBBB PG Care Time/CCT Total # of Minutes Spent Total Time Spent with Patient: Total time spent is greater than 50% in coordination of care (as documented) at patient's floor/unit and/or counseling patient:
[2019-02-18] MEDS: IPRATROPIUM BROMIDE 0.06% SCH (20:36)
[2019-02-18] MEDS: TIMOLOL 0.5% OP SCH (20:38)
[2019-02-18] MEDS ORDERED: LATANOPROST 0.005% OP SOLN 2.5 ML BTL OPB SCH (21:00)
[2019-02-18] MEDS ORDERED: SENNA 8.6 MG TAB PO SCH (21:00)
[2019-02-18] MEDS ORDERED: LATANOPROST 0.005% OP SCH (21:00)
[2019-02-18] MEDS ORDERED: TIMOLOL MALEATE 0.25% OP SOLN 5 ML BTL OPB SCH (21:00)
[2019-02-18] MEDS: DOCUSATE SODIUM 100 MG CAP PO SCH (21:50)
[2019-02-19] MEDS: CEFAZOLIN 1000MG 1,000 MG/7.5 ML SYR IV SCH (00:34)
[2019-02-19] MEDS: SODIUM CHLORIDE 0.9% 1000ML 1,000 ML IV SCH (01:47)
[2019-02-19] MEDS: ACETAMINOPHEN 500 MG TAB PO SCH ×2 (05:47→13:21)
[2019-02-19 06:43] LABS: Hematocrit (blood only) 29.1 % (42-52); Hemoglobin 10.2 g/dL (14.0-18.0); Immature Granulocytes # (auto) 0.01 K/uL (0.00-0.02); Immature Granulocytes % (auto) 0.1 %; Lymphocytes # (auto) 1.26 K/uL (1.2-3.4); Lymphocytes % (auto) 12.5 %; Mean Corpuscular Hgb Conc 35.1 g/dL (32-36); Mean Corpuscular Volume 94.2 fL (80-100); Mean Platelet Volume 8.3 fL (7.4-10.4); Monocytes # (auto) 1.19 K/uL (0.11-0.59); Monocytes % (auto) 11.8 %; Neutrophils % (auto) 75.6 %; Platelet Count 191 K/uL (130-400); RDW Coefficient of Variation 12.5 % (11.5-14.5); RDW Standard Deviation 42.6 fL (36.4-46.3); Red Blood Count 3.09 M/uL (4.7-6.1); White Blood Count 10.06 K/uL (4.8-10.8)
[2019-02-19 07:16] LABS: BUN Creatinine Ratio 18.1 (10-20); Calcium 7.5 mg/dl (8.5-10.1); Creatinine Clr Calc Pharmacy 64.6 ml/min; Est GFR (African American) 92.6; Est GFR (Non-African American) 79.9; Potassium 4.1 mmol/L (3.5-5.1)
--- NOTE | 2019-02-19 08:00 | Anesthesiology Progress Note ---
Date of Service February 19, 2019 Anesthesia Post Procedure Vital Signs Vital Signs: Temp Pulse Pulse Pulse Resp BP BP 02/19/19 07:33 36.7 C 80 20 100/56 L 02/19/19 03:17 36.6 C 94 H 20 118/71 02/19/19 00:43 96 H 02/19/19 00:00 36.3 C L 102 H 20 110/57 L 02/18/19 19:21 36.5 C 93 H 18 115/61 02/18/19 18:25 76 02/18/19 17:54 36.6 C 98 H 16 122/68 02/18/19 16:54 36.3 C L 75 16 99/68 L 02/18/19 15:54 36.2 C L 86 16 120/74 02/18/19 15:24 36.5 C 71 16 113/61 02/18/19 15:00 36.9 C 65 16 107/61 02/18/19 14:55 68 16 103/57 L 02/18/19 14:40 71 17 107/56 L 02/18/19 14:25 66 15 104/60 02/18/19 14:10 62 16 103/62 02/18/19 14:00 61 14 104/62 02/18/19 13:50 36.4 C L 61 12 102/57 L 02/18/19 13:40 62 13 113/64 02/18/19 13:30 79 20 98/59 L 02/18/19 13:20 65 13 104/62 02/18/19 13:10 52 L 16 101/63 02/18/19 13:00 63 14 99/63 L 02/18/19 12:50 58 L 16 90/61 L 02/18/19 12:40 58 L 16 83/56 L 02/18/19 12:30 57 L 14 93/51 L 02/18/19 12:24 36.1 C L 60 18 92/57 L 02/18/19 08:44 36.9 C 87 20 136/78 Pulse Ox 02/19/19 07:33 95 02/19/19 03:17 96 02/19/19 00:43 02/19/19 00:00 92 02/18/19 19:21 96 02/18/19 18:25 02/18/19 17:54 97 02/18/19 16:54 97 02/18/19 15:54 96 02/18/19 15:24 97 02/18/19 15:00 98 02/18/19 14:55 99 02/18/19 14:40 100 02/18/19 14:25 98 02/18/19 14:10 98 02/18/19 14:00 97 02/18/19 13:50 100 02/18/19 13:40 98 02/18/19 13:30 97 02/18/19 13:20 97 02/18/19 13:10 99 02/18/19 13:00 99 02/18/19 12:50 99 02/18/19 12:40 99 02/18/19 12:30 97 02/18/19 12:24 97 02/18/19 08:44 96 Pain Intensity Right Shoulder: Pain Intensity: 2 Notes Mental Status: alert / awake / arousable and participated in evaluation Patient Amnestic to Procedure: Yes Nausea / Vomiting: adequately controlled Pain: adequately controlled Airway Patency, RR, SpO2: stable & adequate BP & HR: stable & adequate Hydration State: stable & adequate Anesthetic Complications: no major complications apparent and Pt Satisfied with anesthetic care
[2019-02-19] MEDS ORDERED: PSYLLIUM 58.6% POWDER PACKET PO SCH (09:00)
[2019-02-19] MEDS ORDERED: OLOPATADINE HCL SCH (09:00)
[2019-02-19] MEDS ORDERED: CHOLECALCIFEROL 1,000 UNITS TAB PO SCH (09:00)
[2019-02-19] MEDS ORDERED: LACTOBACILLUS ACIDOPHILUS (FLORANEX) TAB PO SCH (09:00)
[2019-02-19] MEDS ORDERED: MULTIVITAMIN TAB PO SCH ×2 (09:00)
[2019-02-19] MEDS ORDERED: ASPIRIN 81 MG ECTAB PO SCH (09:00)
[2019-02-19] MEDS ORDERED: lisinopriL 20 MG TAB PO SCH (09:00)
[2019-02-19] MEDS ORDERED: DOCUSATE SODIUM 100 MG CAP PO SCH (09:00)
[2019-02-19] MEDS: INSULIN ASPART 100 UNITS/ML 3 ML PEN SC SCH ×2 (09:26→13:20)
--- NOTE | 2019-02-19 09:26 | Orthopedic Progress Note ---
Date of Service February 19, 2019 Assessment & Plan (1) Status post reverse arthroplasty of right shoulder: 79 yo male stable POD #1 s/p right reverse TSA 1. Med management 2. DVT prophylaxis- SCDs 3. PT/OT 4. D/C planning- home Subjective Pt resting in bed, pain controlled, denies complaints Physical Exam Physical Exam: Dressing intact, drain came out over night, fingers mobile, NVI Results & Data Vital Signs (Past 12 Hours) Vital Signs Temp Pulse Pulse Pulse Resp BP BP 02/19/19 07:33 36.7 C 80 20 100/56 L 02/19/19 03:17 36.6 C 94 H 20 118/71 02/19/19 00:43 96 H 02/19/19 00:00 36.3 C L 102 H 20 110/57 L Pulse Ox 02/19/19 07:33 95 02/19/19 03:17 96 02/19/19 00:43 02/19/19 00:00 92 Laboratory Results 02/19/19 02/19/19 02/19/19 Range/Units 07:29 06:20 06:20 WBC 10.06 (4.8-10.8) K/uL RBC 3.09 L (4.7-6.1) M/uL Hgb 10.2 L (14.0-18.0) g/dL Hct 29.1 L (42-52) % MCV 94.2 (80-100) fL MCH 33.0 (25-34) pg MCHC 35.1 (32-36) g/dL RDW Std Deviation 42.6 (36.4-46.3) fL RDW Coeff of Theresa 12.5 (11.5-14.5) % Plt Count 191 (130-400) K/uL MPV 8.3 (7.4-10.4) fL Immature Gran % (Auto) 0.1 % Neut % (Auto) 75.6 % Lymph % (Auto) 12.5 % Hays % (Auto) 11.8 % Eos % (Auto) 0.0 % Baso % (Auto) 0.0 % Immature Gran # (Auto) 0.01 (0.00-0.02) K/uL Neut # (Auto) 7.60 H (1.4-6.5) K/uL Lymph # (Auto) 1.26 (1.2-3.4) K/uL Hays # (Auto) 1.19 H (0.11-0.59) K/uL Eos # (Auto) 0.00 (0-0.5) K/uL Baso # (Auto) 0.00 (0-0.2) K/uL Sodium 131 L (136-145) mmol/L Potassium 4.1 (3.5-5.1) mmol/L Chloride 100 (98-107) mmol/L Carbon Dioxide 23 (21-32) mmol/L Anion Gap 8.0 (3-11) BUN 17 (7-18) mg/dl Creatinine 0.91 (0.6-1.4) mg/dl Est Cr Clr Drug Dosing 64.6 ml/min Est GFR ( Amer) 92.6 Est GFR (Non-Af Amer) 79.9 BUN/Creatinine Ratio 18.1 (10-20) Glucose 123 H (70-99) mg/dl POC Glucose 125 H (70-99) Calcium 7.5 L (8.5-10.1) mg/dl 02/18/19 02/18/19 Range/Units 20:08 16:23 WBC (4.8-10.8) K/uL RBC (4.7-6.1) M/uL Hgb (14.0-18.0) g/dL Hct (42-52) % MCV (80-100) fL MCH (25-34) pg MCHC (32-36) g/dL RDW Std Deviation (36.4-46.3) fL RDW Coeff of Theresa (11.5-14.5) % Plt Count (130-400) K/uL MPV (7.4-10.4) fL Immature Gran % (Auto) % Neut % (Auto) % Lymph % (Auto) % Hays % (Auto) % Eos % (Auto) % Baso % (Auto) % Immature Gran # (Auto) (0.00-0.02) K/uL Neut # (Auto) (1.4-6.5) K/uL Lymph # (Auto) (1.2-3.4) K/uL Hays # (Auto) (0.11-0.59) K/uL Eos # (Auto) (0-0.5) K/uL Baso # (Auto) (0-0.2) K/uL Sodium (136-145) mmol/L Potassium (3.5-5.1) mmol/L Chloride (98-107) mmol/L Carbon Dioxide (21-32) mmol/L Anion Gap (3-11) BUN (7-18) mg/dl Creatinine (0.6-1.4) mg/dl Est Cr Clr Drug Dosing ml/min Est GFR ( Amer) Est GFR (Non-Af Amer) BUN/Creatinine Ratio (10-20) Glucose (70-99) mg/dl POC Glucose 193 H 167 H (70-99) Calcium (8.5-10.1) mg/dl
[2019-02-19] MEDS: TIMOLOL 0.5% OP SCH (09:36)
[2019-02-19] MEDS: IPRATROPIUM BROMIDE 0.06% SCH (09:38)
[2019-02-19] MEDS: DOCUSATE SODIUM 100 MG CAP PO SCH (09:39)
--- NOTE | 2019-02-19 11:28 | Hospitalist Progress Note ---
Date of Service February 19, 2019 Assessment & Plan (1) Right shoulder pain: * POD #1 s/p Right reverse shoulder with Dr. Lubin * Pain management/DVT proph as per ortho (2) Essential hypertension: * Well controlled at home- per patient, BPs usually run around 118/78. * Currently 100/56 this AM, asymptomatic * Home Lisinopril 60mg held post-operatively -- high dose may have contributed to low sodium * Repeat BP 117/74 prior to discharge (3) Pre-diabetes: * No current medications * SSI PRN (4) Sleep apnea: * Stable- may use home CPAP (5) Cancer: * Hx of bladder cancer in 2012, no current tx (6) GERD without esophagitis: * Hx per patient, however no home medications at this time * Continue to monitor (7) DVT prophylaxis: * As per ortho Supervising Physician Co-Signing Physician Notes Attending Attestation: Chart reviewed, care plan d/w CLARISSA Espinoza. I agree w/ the chong components of her documentation. Pt with low-normal BPs - agree with holding and/or reducing dose of MERNA. Mild hyponatremia noted - would repeat this level in 2-3 days maximum to ensure stability. Creatinine otherwise stable. Ministerio Patel MD Subjective Patient states he is doing well. Shoulder pain tolerable. Patient feels ready for discharge. He states that he was told this morning that he would be good to go once seen this afternoon by Dr. Lubin. Discussed patient's borderline low blood pressure with patient and at bedside. Patient states his blood pressure at home usually runs around 118/78, and he has been taking lisinopril 60mg daily. Patient asymptomatic at this time. Patient denies fever, chills, headache, acute visual changes, chest pain, shortness of breath, abdominal pain, n/v/d at this time. Review of Systems Review of Systems: Constitutional: Denies weight loss, cold or heat intolerance, weakness or fatigue. HEENT: Denies headaches, lightheadedness, acute visual changes, double vision, light sensitivity or syncope, tinnitus, epistaxis, hoarseness, or dysphagia. Pulmonary: Denies shortness of breath, dyspnea on exertion, pain with inspiration, cough, sputum production, or hemoptysis. Cardiovascular: Denies chest pain, palpitations, syncope, edema. GI: Denies abdominal pain, nausea, vomiting, diarrhea, constipation, melena, hematochezia, change in stool color or consistency. : Denies dysuria, discharge, itching, bleeding, hematuria, changes in frequency or urgency, flank pain. MSK/Neuro: Tolerable pain of right shoulder. Denies any other muscle or joint pain, weakness, paralysis, numbness, or tingling. Skin: No rashes, lesions, wounds, eczema. Physical Exam Constitutional: WD/WN, vitals as above Eyes: PERRL, conjunctivae normal, anicteric sclerae ENMT: external ear and nose normal, oropharynx normal Neck: trachea midline, no thyromegaly Respiratory: normal respiratory effort, lungs clear to auscultation Cardiovascular: RRR, no murmur, no edema Gastrointestinal (Abdomen): normal bowel sounds, soft, nontender, no hepatosplenomegaly Musculoskeletal: no cyanosis or clubbing, extremities motor strength 5/5 Dressing intact to right shoulder. Neurovascular intact. Skin: no rashes, warm and dry Neurologic: PERRL, EOMI, accommodation nl, no face palsy, no dysarthria Psychiatric: A+Ox3, euthymic affect Results & Data Vital Signs (Past 12 Hours) Vital Signs Temp Pulse Pulse Pulse Resp BP BP 02/19/19 07:33 36.7 C 80 20 100/56 L 02/19/19 03:17 36.6 C 94 H 20 118/71 02/19/19 00:43 96 H 02/19/19 00:00 36.3 C L 102 H 20 110/57 L Pulse Ox 02/19/19 07:33 95 02/19/19 03:17 96 02/19/19 00:43 02/19/19 00:00 92 Laboratory Results 02/19/19 02/19/19 02/19/19 Range/Units 07:29 06:20 06:20 WBC 10.06 (4.8-10.8) K/uL RBC 3.09 L (4.7-6.1) M/uL Hgb 10.2 L (14.0-18.0) g/dL Hct 29.1 L (42-52) % MCV 94.2 (80-100) fL MCH 33.0 (25-34) pg MCHC 35.1 (32-36) g/dL RDW Std Deviation 42.6 (36.4-46.3) fL RDW Coeff of Theresa 12.5 (11.5-14.5) % Plt Count 191 (130-400) K/uL MPV 8.3 (7.4-10.4) fL Immature Gran % (Auto) 0.1 % Neut % (Auto) 75.6 % Lymph % (Auto) 12.5 % Pender % (Auto) 11.8 % Eos % (Auto) 0.0 % Baso % (Auto) 0.0 % Immature Gran # (Auto) 0.01 (0.00-0.02) K/uL Neut # (Auto) 7.60 H (1.4-6.5) K/uL Lymph # (Auto) 1.26 (1.2-3.4) K/uL Pender # (Auto) 1.19 H (0.11-0.59) K/uL Eos # (Auto) 0.00 (0-0.5) K/uL Baso # (Auto) 0.00 (0-0.2) K/uL Sodium 131 L (136-145) mmol/L Potassium 4.1 (3.5-5.1) mmol/L Chloride 100 (98-107) mmol/L Carbon Dioxide 23 (21-32) mmol/L Anion Gap 8.0 (3-11) BUN 17 (7-18) mg/dl Creatinine 0.91 (0.6-1.4) mg/dl Est Cr Clr Drug Dosing 64.6 ml/min Est GFR ( Amer) 92.6 Est GFR (Non-Af Amer) 79.9 BUN/Creatinine Ratio 18.1 (10-20) Glucose 123 H (70-99) mg/dl POC Glucose 125 H (70-99) Calcium 7.5 L (8.5-10.1) mg/dl 02/18/19 02/18/19 Range/Units 20:08 16:23 WBC (4.8-10.8) K/uL RBC (4.7-6.1) M/uL Hgb (14.0-18.0) g/dL Hct (42-52) % MCV (80-100) fL MCH (25-34) pg MCHC (32-36) g/dL RDW Std Deviation (36.4-46.3) fL RDW Coeff of Theresa (11.5-14.5) % Plt Count (130-400) K/uL MPV (7.4-10.4) fL Immature Gran % (Auto) % Neut % (Auto) % Lymph % (Auto) % Pender % (Auto) % Eos % (Auto) % Baso % (Auto) % Immature Gran # (Auto) (0.00-0.02) K/uL Neut # (Auto) (1.4-6.5) K/uL Lymph # (Auto) (1.2-3.4) K/uL Pender # (Auto) (0.11-0.59) K/uL Eos # (Auto) (0-0.5) K/uL Baso # (Auto) (0-0.2) K/uL Sodium (136-145) mmol/L Potassium (3.5-5.1) mmol/L Chloride (98-107) mmol/L Carbon Dioxide (21-32) mmol/L Anion Gap (3-11) BUN (7-18) mg/dl Creatinine (0.6-1.4) mg/dl Est Cr Clr Drug Dosing ml/min Est GFR ( Amer) Est GFR (Non-Af Amer) BUN/Creatinine Ratio (10-20) Glucose (70-99) mg/dl POC Glucose 193 H 167 H (70-99) Calcium (8.5-10.1) mg/dl PG Care Time/CCT Total # of Minutes Spent Total Time Spent with Patient: Total time spent is greater than 50% in coordination of care (as documented) at patient's floor/unit and/or counseling patient:
[2019-02-19] MEDS ORDERED: SODIUM CHLORIDE 0.9% 500 ML IV SCH (12:00)
--- NOTE | 2019-02-19 13:02 | Pharmacy Report ---
Glycemic Control Consultation - Date of Service February 19, 2019 - Scope Scope: Glycemic Pharmacist consulted by Yuval on 02/18 for glycemic control and to write orders per [facility] inpatient glycemic control protocol - Objective Weight: 77.7 kg Accuchecks BSG (last 24hrs): 02/18/19 02/18/19 02/19/19 16:23 20:08 06:20 Glucose 123 H POC Glucose 167 H 193 H 02/19/19 02/19/19 07:29 11:27 Glucose POC Glucose 125 H 123 H Laboratory Data (last 24hrs): 02/19/19 06:20 Potassium 4.1 Carbon Dioxide 23 Anion Gap 8.0 Creatinine 0.91 Est Cr Clr Drug Dosing 64.6 HbA1c: Hemoglobin A1c 5.7 % (4.5-5.6) H 01/22/19 10:56 - Recent Pertinent Medications Outpatient Anti-diabetic Regimen: * N/A * A1c = 5.7 % 01/22 Risk Factors for Insulin Resistance: * Steroids: Dexamethasone 8 mg po, 4 mg IV + ortho mix * Infection: * Pressors: * IVF: * Recent Surgery: POD #1 * Diet: T2DM * Mechanical Ventilation: - Assessment & Plan Assessment & Plan: ASSESSMENT: * Mr. Swanson admitted for R total shoulder surgery * Patient received dexamethasone 8 mg po, 4 mg IV and ortho mix * BSGs ranged from 123-193, patient was initially ordered lantus 13 units x 1 and correction/carb ratio of 30/15. * Patient has been refusing all insulin, fasting this morning 123 and prandial 123. * Removed lantus/carb ratio. Patient currently ordered correction factor of 30. * Patient likely to be discharged PLAN FOR INPATIENT GLYCEMIC CONTROL: * Bolus insulin * NovoLog per scale ACHS or Q6hrs while NPO * Goal Range: Low 120 mg/dL - High 150 mg/dL * Correction Factor: 30 mg/dL/unit DISCHARGE RECOMMENDATIONS: * Patient's A1c 5.7% meets criteria for pre-diabetes * Support Patient self-management * Healthy lifestyle (diet,exercise,and smoking cessation) * Patient should follow-up with outpatient provider * Please note that the plan above was derived based on current level of insulin resistance and hospital stress. These recommendations are appropriate for inpatient admission only. Plan of care upon discharge will need to be reassessed to avoid potential outpatient hypo/hyperglycemia. Thank you.
[2019-02-19] MEDS ORDERED: CALCIUM CARBONATE 500 MG CHEWABLE TAB PO STA (14:05)
--- NOTE | 2019-03-05 04:47 | Discharge Summary ---
HISTORY OF PRESENT ILLNESS: This is a 79-year-old male patient of Dr. Lubin'dimitri complaining of chronic right shoulder pain and weakness, longstanding, progressively getting worse. He has failed conservative treatment and has been diagnosed with rotator cuff arthropathy. The patient wished to proceed with a right reversed total shoulder arthroplasty. PAST MEDICAL HISTORY: Hypertension, sleep apnea with the use of CPAP, neck problems and a history of bladder cancer. POSTOPERATIVE COURSE: The patient underwent a right reverse total shoulder arthroplasty, biceps tenodesis on 02/18/2019. He was followed closely with medical consultation, physical therapy and pain control. The patient did well postoperatively and was discharged home on postoperative day #1. PHYSICAL EXAMINATION: On discharge, right shoulder dressings were clean, dry and intact. There was no drainage. His fingers were mobile. Elbow was mobile. Sling was intact. Neurologically and neurovascularly, he is intact in his right upper extremity. DIAGNOSES: Status post right reversed total shoulder arthroplasty and biceps tenodesis with a history of hypertension, sleep apnea, neck problems and a history of bladder cancer. PLAN: The patient was discharged home with limited home exercise program only. He will continue his preadmission medications with the addition of aspirin for DVT prophylaxis and pain medications. The patient will follow up as scheduled as an outpatient.
== END 2019-02-19 15:44 | disposition home or self-care (01) | DRG 483 ==
LOC: ASU 07:54 → 2N 12:34

== ENCOUNTER 2024-03-09 22:31 | Inpatient (IN) ==
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
[2024-03-09 23:03] LABS: Basophils # (auto) 0.05 K/uL (0.00-0.20); Basophils % (auto) 0.6 %; Eosinophils # (auto) 0.07 K/uL (0.00-0.50); Eosinophils % (auto) 0.8 %; Hematocrit (blood only) 44.9 % (42.0-52.0); Immature Granulocytes # (auto) 0.02 K/uL (0.01-0.20); Immature Granulocytes % (auto) 0.2 %; Lymphocytes # (auto) 2.91 K/uL (1.20-3.40); Lymphocytes % (auto) 32.7 %; Mean Corpuscular Hemoglobin 31.8 pg (25.0-34.0); Mean Corpuscular Hgb Conc 33.4 g/dL (32.0-36.0); Mean Corpuscular Volume 95.3 fL (80.0-100.0); Mean Platelet Volume 8.6 fL (9.4-12.4); Monocytes # (auto) 1.34 K/uL (0.11-0.59); Neutrophils # (auto) 4.52 K/uL (1.40-6.50); Neutrophils % (auto) 50.7 %; Platelet Count 225 K/uL (130-400); RDW Coefficient of Variation 12.7 % (11.5-14.5); Red Blood Count 4.71 M/uL (4.70-6.10); White Blood Count 8.91 K/ul (4.8-10.8)
[2024-03-09 23:04] LABS: iSTAT Creatinine 1.3 mg/dl (0.6-1.3); iSTAT Hemoglobin 15.6 g/dl (14.0-18.0); iSTAT Ionized Calcium 1.16 mmol/l (1.12-1.32); iSTAT Potassium 4.5 mmol/L (3.3-5.0)
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
[2024-03-09] MEDS: OPTIRAY 320 125ml IV ONE (23:18)
[2024-03-09 23:20] LABS: Albumin Globulin Ratio 1.6 (0.9-2); Albumin Level 4.4 gm/dl (3.4-5.0); BUN Creatinine Ratio 13.5 (10-20); Bilirubin,Total 0.6 mg/dl (0.2-1.0); Calcium 9.2 mg/dl (8.6-10.3); Creatinine Clr Calc Pharmacy 41.9 ml/min; Globulin 2.7 gm/dl (2.5-4.0); Magnesium 2.3 mg/dl (1.7-2.4); Potassium 4.7 mmol/L (3.5-5.1); Total Protein 7.1 gm/dl (6.0-8.3)
[2024-03-09 23:26] LABS: Troponin I High Sensitivity 13.9 pg/ml (0-20)
[2024-03-09] MEDS: ALBUT/IPRATROP 3MG/0.5MG NEB 3 ML VIAL NEB STA (23:29)
--- NOTE | 2024-03-09 23:33 | Emergency Department Note ---
ED Visit Note I was consulted by the Advanced Practice Provider, Leeanna Manning PA-C. I personally made/approved the management plan and take responsibility for the patient management. I performed a substantive portion of the visit. This includes the aspects of: -History/Physical/Personally seeing the patient -MDM .
[2024-03-09] MEDS: FUROSEMIDE 40 MG/4 ML VIAL IV ONE (23:44)
[2024-03-09 23:47] LABS: iSTAT Arterial Blood Gas HCO3 24 meg/L (19-24); iSTAT Arterial Blood Gas pCO2 43 mmHg (35-46); iSTAT Arterial Blood Gas pH 7.35 (7.35-7.45); iSTAT Arterial Blood Gas pO2 88 mmHg (80-95); iSTAT Carbon Dioxide 25 mmol/L (24-31); iSTAT Hematocrit 42 % (42-52); iSTAT Hemoglobin 14.3 g/dl (14.0-18.0); iSTAT Potassium 4.4 mmol/L (3.3-5.0); iSTAT Sample Type Arterial; iSTAT Sodium 134 mmol/L (135-144)
--- NOTE | 2024-03-09 23:50 | CT Scan Report ---
Exam(s): CTA CHEST IV Amt: 119 ml EXAM: CT Angiography Chest With Intravenous Contrast CLINICAL HISTORY: Reason for exam: PE. TECHNIQUE: Axial computed tomographic angiography images of the chest with intravenous contrast. CTDI is 27.11 mGy and DLP is 814.45 mGy-cm. Automated exposure control was utilized for the study. A dose lowering technique was utilized adhering to the principles of ALARA. MIP reconstructed images were created and reviewed. COMPARISON: Chest x-ray from March 09, 2024 FINDINGS: Pulmonary arteries: The pulmonary arterial tree is well opacified with contrast. No pulmonary embolism is identified. Aorta: The thoracic aorta is nondilated. There is mild atherosclerotic calcification. No aneurysm or dissection. 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 Lungs: There is central bronchial wall thickening suggesting bronchitis with debris plugging multiple right lower lobe bronchi. There is mild right basilar linear density which may represent atelectasis versus developing pneumonia. No mass. Pleural space: Unremarkable. No significant effusion. No pneumothorax. Heart: Unremarkable. No cardiomegaly. No significant pericardial effusion. No evidence of RV dysfunction. Bones/joints: Artifact from right shoulder arthroplasty. Mild degenerative changes in the spine. No acute fracture or destructive bone lesion is seen.. No dislocation. Soft tissues: Unremarkable. Lymph nodes: Unremarkable. No enlarged lymph nodes. Tubes, lines and devices: There is a pacing device on the left with leads running to the right side of the heart. IMPRESSION: 1. There is central bronchial wall thickening suggesting bronchitis with debris plugging multiple right lower lobe bronchi. There is mild right basilar linear density which may represent atelectasis versus developing pneumonia. 2. The pulmonary arterial tree is well opacified with contrast. No pulmonary embolism is identified. Electronically signed by: Yao Stephen MD 03/09/24 23:50 PM
--- NOTE | 2024-03-10 00:02 | XRay Report ---
Exam(s): XR CXR 1 VIEW EXAM: XR Chest, 1 View CLINICAL HISTORY: Reason for exam: Dyspnea. TECHNIQUE: Frontal view of the chest. COMPARISON: February 22, 2024 FINDINGS: Lungs: Small amount of basilar subsegmental atelectasis. Pleural space: Unremarkable. No pneumothorax. Heart: The heart is mildly enlarged, unchanged. Mediastinum: Unremarkable. Normal mediastinal contour. Bones/joints: Mild osteophytosis throughout the thoracic spine. Previous right shoulder arthroplasty. No acute fracture. Tubes, lines and devices: Pacing device on the left with the 20 to the right side of the heart. Upper abdomen: Gaseous distention of the stomach. No pneumoperitoneum is seen. IMPRESSION: Mild cardiomegaly with pacing device in place. Small amount of basilar subsegmental atelectasis. Electronically signed by: Yao Stephen MD 03/10/24 00:01 AM
--- NOTE | 2024-03-10 00:18 | CT Scan Report ---
Exam(s): CT ABDOMEN + PELVIS With Contrast IV Amt: 119 ml EXAM: CT Abdomen and Pelvis With Intravenous Contrast CLINICAL HISTORY: Reason for exam: upper abd pain. TECHNIQUE: Axial computed tomography images of the abdomen and pelvis with intravenous contrast. CTDI is 26.08 mGy and DLP is 1311.67 mGy-cm. Automated exposure control was utilized for the study. A dose lowering technique was utilized adhering to the principles of ALARA. CONTRAST: Patient received 119 ml of IV contrast COMPARISON: November 18, 2014 FINDINGS: Lung bases: Unremarkable. No mass. No consolidation. ABDOMEN: Liver: Mild fatty infiltration of the liver. No focal liver lesion is seen. Gallbladder and bile ducts: Unremarkable. No calcified stones. No ductal dilation. Pancreas: Unremarkable. No mass. No ductal dilation. Spleen: Unremarkable. No splenomegaly. Adrenals: Unremarkable. No mass. Kidneys and ureters: Unremarkable. No solid mass. No hydronephrosis. Stomach and bowel: Bilateral inguinal hernias measuring up to 3.5 cm on the right. The right-sided hernia contains a short segment of small bowel without signs of obstruction or incarceration. There is gaseous dilation of the stomach. There is also gaseous dilation of the sigmoid colon measuring 9 cm in diameter. No volvulus. Scattered gas fluid levels within nondilated small bowel suggest mild ileus. No focal bowel inflammation, pneumoperitoneum, or abscess is seen. No mucosal thickening. PELVIS: Appendix: No findings to suggest acute appendicitis. Bladder: Unremarkable. No mass. Reproductive: Unremarkable as visualized. ABDOMEN and PELVIS: Intraperitoneal space: See above. Bones/joints: Mild to moderate degenerative changes in the spine. No acute fracture or subluxation is seen. Soft tissues: See above. Vasculature: The abdominal aorta is mildly calcified but nondilated. Lymph nodes: Unremarkable. No enlarged lymph nodes. IMPRESSION: 1. There is gaseous dilation of the stomach. There is also gaseous dilation of the sigmoid colon measuring 9 cm in diameter. No volvulus. 2. Bilateral inguinal hernias measuring up to 3.5 cm on the right. The right-sided hernia contains a short segment of small bowel without signs of obstruction or incarceration. 3. Scattered gas fluid levels within nondilated small bowel suggest mild ileus. No focal bowel inflammation, pneumoperitoneum, or abscess is seen. Electronically signed by: Yao Stephen MD 03/10/24 00:17 AM
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
[2024-03-10 00:39] LABS: Adenovirus PCR Not Detected (NotDetected); Bordetella parapertussis PCR Not Detected (NotDetected); Bordetella pertussis PCR Not Detected (NotDetected); Chlamydia pneumoniae PCR Not Detected (NotDetected); Coronavirus 229E PCR Not Detected (NotDetected); Coronavirus CoV-2 (COVID19)PCR Not Detected (NotDetected); Coronavirus HKU1 PCR Not Detected (NotDetected); Coronavirus NL63 PCR Not Detected (NotDetected); Coronavirus OC43PCR Not Detected (NotDetected); Human Metapneumovirus PCR Not Detected (NotDetected); Influenza A PCR Not Detected (NotDetected); Influenza B PCR Not Detected (NotDetected); Mycoplasma pneumoniae PCR Not Detected (NotDetected); Parainfluenza Virus 1 PCR Not Detected (NotDetected); Parainfluenza Virus 2 PCR Not Detected (NotDetected); Parainfluenza Virus 3 PCR Not Detected (NotDetected); Parainfluenza Virus 4 PCR Not Detected (NotDetected); Respiratory Syncytial VirusPCR Not Detected (NotDetected); Rhinovirus/Enterovirus PCR Not Detected (NotDetected)
[2024-03-10] MEDS: PIPERACILLIN/TAZOBACTAM 4.5 GM/100 ML BAG IV ONE (00:47)
[2024-03-10] MEDS: SIMETHICONE 80 MG CHEW PO ONE (01:09)
[2024-03-10 01:17] LABS: Appearance Urine Clear (Clear); Bilirubin Urine Negative (Negative); Blood Urine Negative (Negative); Color Urine Yellow; Glucose Urine UA 3+ (Negative); Ketones Urine Negative (Negative); Leukocyte Esterase Urine Negative (Negative); Nitrite Urine Negative (Negative); Protein Urine Negative (Negative); Urobilinogen Urine Negative (Negative); pH Urine 6.5 (4.5-7.5)
[2024-03-10] MEDS: ALBUT/IPRATROP 3MG/0.5MG NEB 3 ML VIAL NEB PRN (02:07)
[2024-03-10] MEDS ORDERED: ONDANSETRON INJ 2 MG/ML 2 ML VIAL IV PRN (03:26)
[2024-03-10] MEDS ORDERED: ACETAMINOPHEN 325 MG TAB PO PRN (03:26)
[2024-03-10 03:51] LABS: Basophils # (auto) 0.03 K/uL (0.00-0.20); Basophils % (auto) 0.4 %; Hematocrit (blood only) 45.5 % (42.0-52.0); Hemoglobin 15.6 g/dl (14.0-18.0); Immature Granulocytes # (auto) 0.01 K/uL (0.01-0.20); Immature Granulocytes % (auto) 0.1 %; Lymphocytes # (auto) 0.82 K/uL (1.20-3.40); Lymphocytes % (auto) 11.1 %; Mean Corpuscular Hemoglobin 32.1 pg (25.0-34.0); Mean Corpuscular Hgb Conc 34.3 g/dL (32.0-36.0); Mean Corpuscular Volume 93.6 fL (80.0-100.0); Mean Platelet Volume 8.7 fL (9.4-12.4); Monocytes # (auto) 0.12 K/uL (0.11-0.59); Monocytes % (auto) 1.6 %; Neutrophils # (auto) 6.41 K/uL (1.40-6.50); Neutrophils % (auto) 86.8 %; Platelet Count 223 K/uL (130-400); RDW Coefficient of Variation 12.8 % (11.5-14.5); RDW Standard Deviation 43.7 fL (36.4-46.3); Red Blood Count 4.86 M/uL (4.70-6.10); White Blood Count 7.39 K/ul (4.8-10.8)
[2024-03-10 04:07] LABS: Albumin Globulin Ratio 1.6 (0.9-2); Albumin Level 4.5 gm/dl (3.4-5.0); BUN Creatinine Ratio 14.5 (10-20); Bilirubin,Total 0.8 mg/dl (0.2-1.0); Calcium 9.4 mg/dl (8.6-10.3); Creatinine Clr Calc Pharmacy 40.3 ml/min; Globulin 2.8 gm/dl (2.5-4.0); Potassium 4.2 mmol/L (3.5-5.1); Total Protein 7.3 gm/dl (6.0-8.3)
[2024-03-10] MEDS: PIPERACILLIN/TAZOBACTAM 4.5 GM/100 ML BAG IV SCH (05:20)
[2024-03-10] MEDS: BENZONATATE 100 MG CAPSULE PO PRN (07:17)
[2024-03-10] MEDS: COUGH DROP (SUGAR FREE) LOZ 24 LOZ/1 BOX BUCCAL PRN (07:17)
--- NOTE | 2024-03-10 08:48 | Pulmonary Consultation ---
Date of Consultation March 10, 2024 Assessment & Plan (1) Obstructive sleep apnea: (2) Acute asthma exacerbation: (3) Asthmatic bronchitis: (4) Abnormal chest CT: Plan CT chest 03/09/2024 personally reviewed: Minimal centrilobular emphysema appreciated bilaterally especially in the upper lobes Linear atelectasis of the right lower lobe No significant mediastinal lymphadenopathy PFT 04/06/2022 personally reviewed: Mild obstructive lung dysfunction, insignificant bronchodilator response FVC 3.54 L 107%, FEV1 2.03 L 88%, FEV1/FVC 57%, RV 130%, TLC 114%, RV/TLC 115%, DLCO 90% -- Acute exacerbation asthma with asthmatic bronchitis Uses only albuterol at home Respiratory BioFire negative for everything Procalcitonin negative -- CRYSTAL Continue with CPAP at night --History of chronic rhinitis Plan: Solu-Medrol 40 mg twice daily Add doxycycline for atypical coverage I think it is okay to discontinue Zosyn as I do not think patient has aspiration pneumonia On discharge would recommend either Breo or Symbicort to be used on a regular basis Mucinex with flutter valve Please note the above document was generated using voice recognition software. It may contain grammatical, syntax or spelling errors.Any formal questions or concerns about the content, text or information contained within the body of this dictation should be directly addressed to the provider for clarification. History of Present Illness Attending Physician: Juan Cheng MD History of Present Illness 84-year-old male presented to the hospital with complaints of coughing and shortness of breath Past medical history: CRYSTAL on CPAP, hypertension, biliary cancer, systolic CHF status post AICD, dyslipidemia Pulmonary consulted for the same At the time of examination patient was saturating 97-98% while the nasal cannula was not in his nose He was not in any respiratory distress He did have occasional cough. He says that he has been coughing and having runny nose for couple of days. Prior to this he had some bouts of diarrhea which is since resolved. Subjective chills but denies any fever. No sick contacts. No dysuria. No hematuria, hematochezia Denies any headache or blurry vision No nausea vomiting Social history: Lifetime non-smoker. Worked for [employer], no exposure to chemicals or fumes Used to have a dog. Not anymore Family history of asthma and 1 aunt. No personal history of asthma Allergies Allergy/AdvReac Type Severity Reaction Status Date / Time No Known Drug Allergies Allergy Unknown . Verified 03/06/24 13:34 Home Medications Medication Instructions Recorded Confirmed Type multivitamin 1 tab PO QAM 03/12/18 03/10/24 History omega 6-zlm-hhj-fish oil 1,000 mg 1 cap PO QAM 03/12/18 03/10/24 History (120 mg-180 mg) capsule (Fish Oil) psyllium husk 0.52 gram capsule 0.52 g PO QAM 03/12/18 03/10/24 History (Fiber-Caps (psyllium husk)) timolol 0.25 % eye drops 1 drp ophthalmic (eye) Q12H 01/22/19 03/10/24 History CPAP Machine #1 ea 04/18/22 03/10/24 Rx inhaler,assist devices,access #1 ea 03/16/23 03/10/24 Rx rosuvastatin 10 mg tablet 10 mg PO QAM 04/19/23 03/10/24 History sacubitril 49 mg-valsartan 51 mg 1 tab PO BID #180 tabs 04/19/23 03/10/24 Rx tablet (Entresto) empagliflozin 10 mg tablet 10 mg PO QAM 06/07/23 03/10/24 History (Jardiance) spironolactone 25 mg tablet 12.5 mg PO QAM 06/07/23 03/10/24 History B6 0.85 mg-folic 200 1 tab PO DAILY 06/27/23 03/10/24 History pns-K38-pvpifdY12-miwzee-xunlkgojmrzn oral chewable tablet (Neuriva Plus) latanoprost 0.005 % eye drops 1 drp OPB HS 06/27/23 03/10/24 History metoprolol succinate 25 mg 25 mg PO UD 06/27/23 03/10/24 History tablet,extended release 24 hr acetaminophen 325 mg tablet 975 mg PO QID 07/12/23 03/10/24 History ascorbate calcium (vitamin C) 500 500 mg PO DAILY 11/21/23 03/10/24 History mg tablet calcium glucarate 500 mg capsule 1 tab-cap PO BID 11/21/23 03/10/24 History furosemide 20 mg tablet 20 mg PO ONCE PRN Edema 11/21/23 03/10/24 History lactobacillus combination no.9 4 4,000 mmu cells PO DAILY 11/21/23 03/10/24 History billion cell capsule (Adult 50 Plus Probiotic) ipratropium bromide 42 mcg (0.06 See Rx Instructions .Route 02/21/24 03/10/24 Rx %) nasal spray .COMPLEX #15 mL sulfamethoxazole 800 1 tab PO BID 03/10/24 03/10/24 History mg-trimethoprim 160 mg tablet Patient History Medical History Hx of shortness of breath ~2021, noted by dr. aguila; pt "thinks this is when they gave him his inhalers"- not currently using inhalers daily Hx of pneumothorax 08/2022 Hyperlipidemia Loss of consciousness 08/12/22, passed out while driving back from [place] due to "dehydration"- no issues since History of COVID-19 History of bladder cancer dx ~2012; had medication tx where they instilled the "fluid" into his bladder for the cancer Osteoarthritis GERD (gastroesophageal reflux disease) occasional Hearing deficit hearing aids-bilateral Glaucoma Hypertension Sleep apnea CPAP Surgical History Hx of cardiac catheterization 01/2022, "suggested by dr. aguila to have the procedure done," [facility], no stents; f/u dr. rubalcava, [facility] Hx of arthroscopy of shoulder rt Status post reverse arthroplasty of right shoulder Hx of cataract surgery rt/lt Hx of vasectomy History of colonoscopy History of hemorrhoidectomy History of tooth extraction History of tonsillectomy Family History Grandmother Dementia Osteoarthritis Rheumatoid arthritis Father Heart disease Myocardial infarction Grandfather (Maternal) Lung disease Mother Osteoporosis Uncle Lung cancer Denies family history of Ovarian cancer Prostate cancer Breast cancer Colorectal cancer Stroke Social History Smoking Status: Never smoker Second Hand Exposure: No; Do You Dip or Chew Tobacco: No; Hx Alcohol Use: Yes Alcohol type: hard liquor Hx Substance Use: No Preferred Language: Mongolian Communication Ability: Effective Communication Ability Comment: HARD OF HEARING / AIDES Visual Impairment: No Limitations Hearing Ability: Use of Hearing Aid Blood Bank Custodian Required: No Beliefs That Will Affect Care: None marital status: Current Living Situation: Spouse current occupational status: retired How many Children do You have: 1 Feels Safe at Home: Yes Childhood Exposure to Second-Hand Smoke: No caffeine: Yes Dental Care, Regularly: Yes Seatbelt Use: always Sunscreen Use: No Assistive Devices: Cane, CPAP and Hearing Aid - Bilateral Review of Systems 2 Review of Systems: All systems reviewed & are unremarkable except as noted in HPI & below Physical Exam 2 Physical Exam: Constitutional: No acute distress HEENT: EOMI, PERRLA, hard to hear Respiratory system: Decreased air entry bilaterally, positive diffuse expiratory wheeze bilaterally, minimal rhonchi, mild crackles bilateral lower lobes CVS: S1-S2 positive, no murmurs or gallops, left-sided AICD Abdomen: Soft, nontender, nondistended, positive bowel sounds x4, obese Extremities: +2 pulses bilaterally radialis/ dorsalis pedis, no cyanosis, minimal pitting edema bilateral lower extremity Neuro: Awake alert oriented x3 Psych: Normal mood and affect G/U: No Randle Skin: no rashes, warm and dry Lymphatic: no cervical or axillary lymphadenopathy Results & Data Results & Data Vital Signs (Past 12 Hours) Vital Signs Temp Pulse Pulse Resp BP BP Pulse Ox 03/10/24 07:10 96 H 22 92 03/10/24 07:06 100 H 03/10/24 07:00 101 H 25 H 119/79 94 03/10/24 03:26 91 H 20 92 03/10/24 03:26 91 H 20 92 03/10/24 03:00 91 H 20 120/86 92 03/10/24 02:59 91 H 25 H 93 03/10/24 02:18 94 H 25 H 96 03/10/24 01:35 95 H 16 124/79 90 03/10/24 00:25 93 H 20 132/77 93 03/09/24 22:56 03/09/24 22:55 99 H 27 H 92 03/09/24 22:46 37.4 C 99 H 27 H 122/76 92 03/09/24 22:44 101 H O2 Del Method O2 Flow Rate FiO2 03/10/24 07:10 5 03/10/24 07:06 03/10/24 07:00 CPAP 03/10/24 03:26 CPAP 03/10/24 03:26 CPAP 03/10/24 03:00 CPAP 3 03/10/24 02:59 5 03/10/24 02:18 21 03/10/24 01:35 Nasal Cannula 3 03/10/24 00:25 Nasal Cannula 2 03/09/24 22:56 Nasal Cannula 2 03/09/24 22:55 Nasal Cannula 2 03/09/24 22:46 Nasal Cannula 2 03/09/24 22:44 Laboratory Results 03/10/24 03:32 03/10/24 03:32 PG Care Time/CCT Total # of Minutes Spent Total Time Spent with Patient: Total time spent is greater than 50% in coordination of care (as documented) at patient's floor/unit and/or counseling patient: Coding Level of Care Code 69962 INT INP/OBS CARE 375MIN Diagnoses Obstructive sleep apnea G47.33 Acute asthma exacerbation J45.901 Asthmatic bronchitis J45.[address] R93.89
[2024-03-10] MEDS: SIMETHICONE 80 MG CHEW PO SCH (08:56)
[2024-03-10] MEDS: ADVANCED PROBIOTIC 625 MG CAPSULE PO SCH (08:56)
[2024-03-10] MEDS: METOPROLOL SUCC 50MG EXT REL TAB PO SCH (08:56)
[2024-03-10] MEDS: PANTOprazole 40 MG/10 ML SYR IV SCH (08:56)
[2024-03-10] MEDS: ROSUVASTATIN CALCIUM 10 MG TAB PO SCH (08:56)
[2024-03-10] MEDS ORDERED: METOPROLOL SUCC 25MG EXT REL TAB PO SCH (09:00)
[2024-03-10] MEDS: TIMOLOL MALEATE 0.25% OP SOLN 5 ML BTL OP SCH (10:21)
[2024-03-10] MEDS: DOXYCYCLINE HYCLATE 100 MG CAP PO SCH (14:38)
[2024-03-10] MEDS: FORMOTEROL 20 MCG/2 ML VIAL INH SCH (20:00)
[2024-03-10] MEDS: BUDESONIDE 0.5 MG/2 ML VIAL (PULMICORT) NEB SCH (20:00)
[2024-03-10] MEDS ORDERED: methylPREDNISolone 1000 MG/16 ML IV SCH (21:00)
[2024-03-10] MEDS: guaiFENesin 600 MG TABCR PO SCH (21:19)
[2024-03-10] MEDS: methylPREDNISolone 40 MG in SYRINGE 0 ML IV SCH (21:19)
[2024-03-10] MEDS: LATANOPROST 0.005% OP SOLN 2.5 ML BTL OPB SCH (22:37)
[2024-03-11 07:46] LABS: Basophils # (auto) 0.01 K/uL (0.00-0.20); Basophils % (auto) 0.1 %; Hemoglobin 15.2 g/dl (14.0-18.0); Immature Granulocytes # (auto) 0.04 K/uL (0.01-0.20); Immature Granulocytes % (auto) 0.4 %; Lymphocytes # (auto) 1.18 K/uL (1.20-3.40); Lymphocytes % (auto) 10.7 %; Mean Corpuscular Hgb Conc 33.8 g/dL (32.0-36.0); Mean Corpuscular Volume 94.7 fL (80.0-100.0); Mean Platelet Volume 8.9 fL (9.4-12.4); Monocytes # (auto) 0.67 K/uL (0.11-0.59); Monocytes % (auto) 6.1 %; Neutrophils # (auto) 9.09 K/uL (1.40-6.50); Neutrophils % (auto) 82.7 %; Platelet Count 254 K/uL (130-400); RDW Coefficient of Variation 12.8 % (11.5-14.5); Red Blood Count 4.75 M/uL (4.70-6.10); White Blood Count 10.99 K/ul (4.8-10.8)
[2024-03-11 08:05] LABS: Albumin Globulin Ratio 1.6 (0.9-2); Albumin Level 4.2 gm/dl (3.4-5.0); Calcium 9.5 mg/dl (8.6-10.3); Creatinine Clr Calc Pharmacy 38.3 ml/min; Globulin 2.7 gm/dl (2.5-4.0); Potassium 4.5 mmol/L (3.5-5.1); Total Protein 6.9 gm/dl (6.0-8.3)
--- NOTE | 2024-03-11 09:35 | Pulmonology Progress Note ---
Date of Service March 11, 2024 Assessment & Plan (1) Acute asthma exacerbation: Plan: PFTs from 04/06/2022 revealed mild airflow obstruction. No significant eosinophilia on CBCs. Patient without wheeze today. Okay to transition to p.o. prednisone for total of 5 days including his IV methylprednisone dosing. Recommend discharging the patient home on an ICS/LABA inhaler such as Symbicort. Continue nebulized ICS and nebulized LABA while inpatient. CT chest 03/09/2024 personally reviewed with minimal mucous plugging and platelike atelectasis at the bases bilaterally. Otherwise relatively clear chest. Suspect his exacerbation was brought on by severe constipation versus low-grade ileus. Respiratory viral swab negative on admission. Unclear role for doxycycline at this point in time. I do not see clear signs of respiratory infection at present. Will defer antibiotic to primary team. Continue attempts at airway clearance with Mucinex and flutter valve. Patient can likely be discharged from the hospital today from a respiratory perspective. Pulmonary sign off. Please call with questions. Thank you for the consult. (2) Hypoxemia: Plan: Patient was on supplemental oxygen earlier this hospitalization. He appears to be weaned off. Continue to maintain sats above 90%. (3) Obstructive sleep apnea: Plan: Continue use of home CPAP. (4) Ileus: Plan: Abdominal symptoms appear to be improved. Defer to primary team for management of low-grade ileus. Admission and Anticipated Discharge Date Admission Date: March 10, 2024 Subjective Signout received from outgoing pulmonary provider. Patient notes that he is feeling near baseline at home pulmonary perspective. He notes that over the last day or 2 he has been coughing up mucous plugs. He denies any blood. He feels the shortness of breath is improved significantly since yesterday. He is saturating well on room air. He used CPAP overnight. He denies any chest pain, fevers, chills or night sweats. Review of Systems Review of Systems: All systems reviewed & are unremarkable except as noted in HPI & below Physical Exam Physical Exam: Constitutional: Patient appears to be of their stated age. Patient is in no apparent distress. Patient is well-developed. Eyes: Pupils are equal round and reactive to light. Conjunctivae are normal. Anicteric sclera. Ears nose, mouth and throat: No perioral cyanosis. Neck: Trachea is midline. Visual inspection is normal. Respiratory: Clear to auscultation bilaterally. No use of accessory muscles. No significant clubbing noted. Cardiovascular: Regular rate and rhythm. No murmurs. No edema. Gastrointestinal: Normal bowel sounds, soft, nontender and nondistended. No hepatosplenomegaly noted. Musculoskeletal: No cyanosis. Patient is able to move all extremities. Strength is 5 out of 5 in the upper and lower extremities. Skin: No rashes, warm dry and intact. Neurologic: No obvious focal neurological deficits seen. Psychiatric: Alert and oriented x3 with a euthymic affect. Results & Data Results & Data Vital Signs (Past 12 Hours) Vital Signs Temp Pulse Pulse Resp BP Pulse Ox O2 Del Method 03/11/24 07:40 36.6 C 96 H 20 144/78 H 94 Room Air 03/11/24 07:18 102 H 03/11/24 07:07 92 H 91 Room Air 03/11/24 04:14 85 19 95 03/11/24 04:01 36.8 C 108 H 18 144/90 H 95 Room Air 03/10/24 22:48 36.8 C 90 18 131/84 98 CPAP 03/10/24 21:47 96 H O2 Flow Rate 03/11/24 07:40 03/11/24 07:18 03/11/24 07:07 03/11/24 04:14 5 03/11/24 04:01 03/10/24 22:48 03/10/24 21:47 PG Care Time/CCT Total # of Minutes Spent Total Time Spent with Patient: Total time spent is greater than 50% in coordination of care (as documented) at patient's floor/unit and/or counseling patient: Coding Level of Care Code 91322 SUB INP/OBS CARE 2/35MIN Diagnoses Acute asthma exacerbation J45.901 Hypoxemia R09.02 Obstructive sleep apnea G47.33 Ileus K56.7
--- NOTE | 2024-03-11 11:15 | Hospitalist Progress Note ---
Date of Service March 11, 2024 Assessment & Plan (1) Aspiration pneumonia: Plan: -CT angiography of chest notes bronchitis, with right lower lobe mucous plugging -pt with asthma exacerbation with bronchitis -pulmonary consult appreciated -con't steroids, inhalers nebs -doxycycline for atypical coverage (2) Acute on chronic respiratory failure with hypoxia: Plan: -resolved (3) ICD (implantable cardioverter-defibrillator) in place: Plan: -noted (4) Cardiomyopathy: Plan: -noted (5) Essential hypertension: Plan: -BP controlled (6) Obstructive sleep apnea: Plan: CPAP at bedtime for CRYSTAL and pneumonia (7) Severe left ventricular systolic dysfunction: Plan: noted, no evidence of CHF (8) Pre-diabetes: Plan: noted Plan Con't current management, if symptoms continue to improve anticipate discharge 03/12. Admission and Anticipated Discharge Date Admission Date: March 10, 2024 Subjective Pt feeling better this am. Sating well on room air. States his breathing has improved. Review of Systems Review of Systems: CONST: Negative for fever, body aches and chills. HENT: Negative for neck pain/stiffness, headache, congestion, sore throat, swelling. EYES: Negative for discharge/pain or vision changes. RESP: Negative for cough/hemoptysis and shortness of breath. CV: Negative chest pain, difficulty breathing, palpitations. ABD: Negative pain, nausea, vomiting. : Negative increase frequency, dysuria, blood in urine or stool. MUSC: Negative for muscle aches, edema. SKIN: Negative rash, lesions/sores. NEURO: Negative headache, dizziness, weakness. Physical Exam Physical Exam: GENERAL APPEARANCE NAD, activity normal for age, well developed/ well nourished, no cyanosis, pallor, or diaphoresis. EYES lids/conjunctiva normal. EARS/NOSE/THROAT Mucous membranes moist, nares normal, lips/teeth normal uvula midline without oral pharyngeal erythema, exudate or swelling TMs normal bilaterally. No lymphangitis/lymphedema. HEAD/NECK normocephalic atraumatic, no facial trauma, neck is supple. RESPIRATORY respiratory effort normal, speaks in full sentences, no tripod position, no accessory muscle use. Lungs clear to auscultation without rhonchi, wheezes, rales CARDIAC Regular rate and rhythm, no edema. ABDOMINAL Soft, ND/NT. No evidence of fluid wave. No pulsatile masses on exam, rebound tenderness, Torre sign or pain over Mcburney's point. MUSCLES/EXTREMITIES No abnormal range of motion, no swelling. SKIN Warm, pink and dry. No rashes, dermatoses, petechiae or lesions. NEUROLOGICAL Speech is clear and appropriate. Normal level of consciousness. Gait and coordination are normal. 5/5 strength in all extremities. PSYCH Normal mood and affect. Judgement/competence is appropriate Results & Data Results & Data Vital Signs (Past 12 Hours) Vital Signs Temp Pulse Pulse Resp BP Pulse Ox O2 Del Method 03/11/24 08:50 Room Air 03/11/24 07:40 36.6 C 96 H 20 144/78 H 94 Room Air 03/11/24 07:18 102 H 03/11/24 07:07 92 H 91 Room Air 03/11/24 04:14 85 19 95 03/11/24 04:01 36.8 C 108 H 18 144/90 H 95 Room Air O2 Flow Rate 03/11/24 08:50 03/11/24 07:40 03/11/24 07:18 03/11/24 07:07 03/11/24 04:14 5 03/11/24 04:01 PG Care Time/CCT Total # of Minutes Spent Total Time Spent with Patient: Total time spent is greater than 50% in coordination of care (as documented) at patient's floor/unit and/or counseling patient: Coding Level of Care Code 35598 SUB INP/OBS CARE 2/35MIN Diagnoses Aspiration pneumonia J69.0 Acute on chronic respiratory failure with hypoxia J96.21 ICD (implantable cardioverter-defibrillator) in place Z95.810 Cardiomyopathy I42.9 Essential hypertension I10 Obstructive sleep apnea G47.33 Severe left ventricular systolic dysfunction I51.9 Pre-diabetes R73.03
[2024-03-12] MEDS: predniSONE 20 MG TAB PO SCH (07:35)
[2024-03-12 07:43] LABS: Basophils # (auto) 0.02 K/uL (0.00-0.20); Basophils % (auto) 0.1 %; Eosinophils # (auto) 0.01 K/uL (0.00-0.50); Eosinophils % (auto) 0.1 %; Hematocrit (blood only) 44.7 % (42.0-52.0); Hemoglobin 15.3 g/dl (14.0-18.0); Immature Granulocytes # (auto) 0.04 K/uL (0.01-0.20); Immature Granulocytes % (auto) 0.3 %; Lymphocytes # (auto) 2.81 K/uL (1.20-3.40); Mean Corpuscular Hemoglobin 31.6 pg (25.0-34.0); Mean Corpuscular Hgb Conc 34.2 g/dL (32.0-36.0); Mean Corpuscular Volume 92.4 fL (80.0-100.0); Mean Platelet Volume 8.7 fL (9.4-12.4); Monocytes # (auto) 1.34 K/uL (0.11-0.59); Neutrophils # (auto) 9.15 K/uL (1.40-6.50); Neutrophils % (auto) 68.5 %; Platelet Count 263 K/uL (130-400); RDW Coefficient of Variation 12.6 % (11.5-14.5); RDW Standard Deviation 42.5 fL (36.4-46.3); Red Blood Count 4.84 M/uL (4.70-6.10); White Blood Count 13.37 K/ul (4.8-10.8)
[2024-03-12 07:58] LABS: Albumin Globulin Ratio 1.7 (0.9-2); Albumin Level 4.5 gm/dl (3.4-5.0); BUN Creatinine Ratio 27.9 (10-20); Bilirubin,Total 0.9 mg/dl (0.2-1.0); Calcium 9.5 mg/dl (8.6-10.3); Globulin 2.7 gm/dl (2.5-4.0); Magnesium 2.1 mg/dl (1.7-2.4); Total Protein 7.2 gm/dl (6.0-8.3)
[2024-03-12 10:48] VITALS: BP 162/91; RESP 19; TEMP 97.5; O2SAT 93
--- NOTE | 2024-03-12 12:03 | Electrocardiogram Report ---
Test Reason : Blood Pressure : */* mmHG Vent. Rate : 93 BPM Atrial Rate : 93 BPM P-R Int : 160 ms QRS Dur : 70 ms QT Int : 354 ms P-R-T Axes : 66 -14 60 degrees QTcB Int : 440 ms Atrial-sensed ventricular-paced rhythm with unusual dual V paced timing Abnormal ECG When compared with ECG of 22-Jan-2019 10:59, Electronic ventricular pacemaker has replaced Sinus rhythm Confirmed by Thai Nieto ([id number]) on 03/12/2024 12:03:12 PM Referred By: NO PCP Confirmed By: Thai Nieto
--- NOTE | 2024-03-12 12:06 | Discharge Summary ---
Discharge Summary Date of Service March 12, 2024 Principal Dx & Hospital Course #1 = Principal Diagnosis (1) Aspiration pneumonia: -CT angiography of chest notes bronchitis, with right lower lobe mucous plugging -pt with asthma exacerbation with bronchitis -pulmonary consult appreciated -con't steroids, inhalers nebs -doxycycline for atypical coverage (2) Acute on chronic respiratory failure with hypoxia: -resolved (3) ICD (implantable cardioverter-defibrillator) in place: -noted (4) Cardiomyopathy: -noted (5) Essential hypertension: -BP controlled (6) Obstructive sleep apnea: CPAP at bedtime for CRYSTAL and pneumonia (7) Severe left ventricular systolic dysfunction: noted, no evidence of CHF (8) Pre-diabetes: noted Plan Con't current management, if symptoms continue to improve anticipate discharge 03/12. Admission HPI Per Admitting Provider The patient is an 84-year-old male with past medical history including presence of ICD, syncope, pneumothorax, subcutaneous emphysema due to trauma, GERD without esophagitis, hyperlipidemia, hypertension, CRYSTAL on CPAP, bladder cancer, HFrEF and prediabetes. The patient was recently treated for bronchitis with steroids, but over the past few days has had the development of gradually worsening shortness of breath, dyspnea on exertion and moist cough. He does report that he clears his throat a lot when he is eating, and frequently coughs while eating. He has had a chronically distended, which he feels affects his breathing and ability to sleep. Discharge Exam GENERAL APPEARANCE NAD, activity normal for age, well developed/ well nourished, no cyanosis, pallor, or diaphoresis. EYES lids/conjunctiva normal. EARS/NOSE/THROAT Mucous membranes moist, nares normal, lips/teeth normal uvula midline without oral pharyngeal erythema, exudate or swelling TMs normal bilaterally. No lymphangitis/lymphedema. HEAD/NECK normocephalic atraumatic, no facial trauma, neck is supple. RESPIRATORY respiratory effort normal, speaks in full sentences, no tripod position, no accessory muscle use. Lungs clear to auscultation without rhonchi, wheezes, rales CARDIAC Regular rate and rhythm, no edema. ABDOMINAL Soft, ND/NT. No evidence of fluid wave. No pulsatile masses on exam, rebound tenderness, Torre sign or pain over Mcburney's point. MUSCLES/EXTREMITIES No abnormal range of motion, no swelling. SKIN Warm, pink and dry. No rashes, dermatoses, petechiae or lesions. NEUROLOGICAL Speech is clear and appropriate. Normal level of consciousness. Gai t and coordination are normal. 5/5 strength in all extremities. PSYCH Normal mood and affect. Judgement/competence is appropriate Discharge Plan Discharge Items Patient Disposition: Home - Self-Care Reason For Visit: ASPIRATION PNEUMONIA Discharge Diagnosis: asthma exacerbation, broncitis Condition on Discharge: Fair Activity: Resume your previous activity Non-emergency contact: Primary Care Provider Call non-emergency contact if: you have any medication questions and your symptoms worsen Follow-up/Referrals: ProSylvester MD [Primary Care Provider] - Diet: Regular Addtl Attending Provider Instructions: Follow up with PMD in 1 week Pending Studies at Discharge: No Stand-Alone Forms: [employer], Smoking Cessation Medications and DC Order Prescriptions: New doxycycline hyclate 100 mg Capsule 100 mg PO BID Qty: 8 0RF benzonatate 100 mg Capsule 200 mg PO TID PRN (Reason: cough) Qty: 30 0RF formoterol fumarate [Perforomist] 20 mcg/2 mL Solution For Nebulization 20 mcg inhalation BIDR Qty: 1 0RF prednisone 10 mg tablet 10 mg PO DIRECTED Qty: 30 0RF Rx Instructions: see taper instructions 4 tabs po x 1 day then, 3 tabs po x 1 day then, 2 tabs po x 1 day then, 1 tab po x 1 Continued Jardiance 10 mg tablet 10 mg PO QAM spironolactone 25 mg tablet 12.5 mg PO QAM calcium glucarate 500 mg capsule 1 tab-cap PO BID ascorbate calcium (vitamin C) 500 mg tablet 500 mg PO DAILY Adult 50 Plus Probiotic 4 billion cell capsule 4,000 mmu cells PO DAILY Rx Instructions: administer with a meal (DME) inhaler,assist devices,access Device See Rx Instructions .MEDSUPPLY Qty: 1 0RF Rx Instructions: spacer for HFA inhlaer, use as directed rosuvastatin 10 mg tablet 10 mg PO QAM Entresto 49-51 mg tablet 1 tab PO BID Qty: 180 3RF (DME) CPAP Machine Misc See Rx Instructions .Route Qty: 1 0RF Rx Instructions: As directed ipratropium bromide 42 mcg (0.06 %) spray,non-aerosol See Rx Instructions .ROUTE .COMPLEX Qty: 15 1RF Rx Instructions: USE 1-2 SPRAYS EACH NOSTRIL 1-2 TIMES DAILY.; acetaminophen 325 mg tablet 975 mg PO QID multivitamin Tablet 1 tab PO QAM psyllium husk [Fiber-Caps (psyllium husk)] 0.52 gram Capsule 0.52 g PO QAM omega 2-dlq-gid-fish oil [Fish Oil] 1,000 mg (120 mg-180 mg) Capsule 1 cap PO QAM timolol 0.25 % drops 1 drp OPHTHALMIC (EYE) Q12H latanoprost 0.005 % drops 1 drp OPB HS metoprolol succinate 25 mg tablet extended release 24 hr 25 mg PO UD Rx Instructions: take 50mg in am & then 25mg in evening Neuriva Plus 0.85 mg-200 mcg-1.2 mcg Tablet,Chewable 1 tab PO DAILY furosemide 20 mg tablet 20 mg PO ONCE PRN (Reason: Edema) Rx Instructions: Monday, Monday, Monday Discontinued sulfamethoxazole-trimethoprim 800-160 mg tablet 1 tab PO BID Discharge Orders: Discharge Order (Routine); Ordered 03/12/24 Ordered By: Juan Cheng Admission Data Admit Date/Time: 03/10/24 00:37 Attending Provider: Juan Cheng Admit Provider: Beny Alcazar Primary Care Provider: Sylvester Posey Other Providers: Linda Maxwell; Beny Alcazar Hospital Stay Data Consultations 03/10/24 00:08 ED Decision to Admit Stat 03/10/24 03:26 Consult Pulmonology Routine Diagnostic Imagining Performed 03/09/24 23:07 CT Abd and Pelvis [CT abd pelvis IV con only] Stat CT angio chest PE protocol Stat Pending Results Patient Have Any Pending Studies at Discharge: No Discharge Instructions Given to Patient (Per Discharging Provider) Follow up with PMD in 1 week Total Time Total Time Spent Total Time Spent (In Minutes): 50 Coding Level of Care Code 79537 INP/OBS DISCH >30 MIN Diagnoses Aspiration pneumonia J69.0 Acute on chronic respiratory failure with hypoxia J96.21 ICD (implantable cardioverter-defibrillator) in place Z95.810 Cardiomyopathy I42.9 Essential hypertension I10 Obstructive sleep apnea G47.33 Severe left ventricular systolic dysfunction I51.9 Pre-diabetes R73.03
[2024-03-12 12:26] VITALS: PULSE 87
== END 2024-03-12 13:29 | disposition home or self-care (01) | DRG 177 ==
LOC: ED 22:31 → SUATTDRO 03-10 00:37 → EDINP 03-10 00:37 → 2S 03-10 03:26